=== PATIENT | female | born 1950 | race Caucasian/White ===

== ENCOUNTER → 2020-03-17 17:28 | Outpatient (CLI) | payer MEDICARE, MEDICAID, SELFPAY ==
[2020-03-17 18:30] LABS: Basophils % 0.4 % (0.1-2.0); Eosinophils # 0.3 K/mm3 (0.0-0.4); Eosinophils % 3.2 % (0.1-12.0); Hematocrit 42.9 % (37.0-47.0); Lymphocytes # 3.3 K/mm3 (0.7-4.5); Lymphocytes % 35.4 % (10-50); Mean Corpuscular HGB Conc 32.7 g/dL (31.8-35.4); Mean Corpuscular Hemoglobin 30.6 pg (27.0-31.2); Mean Corpuscular Volume 93.7 fl (81-99); Mean Platelet Volume 8.2 fl (7.4-10.4); Monocytes # 0.5 K/mm3 (0.1-1.0); Monocytes % 4.9 % (1.7-9.3); Neutrophils # 5.2 K/mm3 (1.8-7.8); Platelet Count 348 K/mm3 (142-424); Red Blood Count 4.58 M/mm3 (4.20-5.40); Red Cell Distribution Width 14.5 % (11.5-17.5); White Blood Count 9.2 K/mm3 (4.8-10.8)
[2020-03-17 19:05] LABS: Chloride 105 mmol/L (98-107); Potassium 4.3 mmoL/L (3.5-5.1); Sodium 137 mmol/L (136-145)
[2020-03-17 19:08] LABS: Alanine Aminotransferase 7 U/L (12-78); Albumin Level 4.2 g/dl (3.5-5.0); Albumin/Globulin Ratio 1.4 (1.1-1.8); Alkaline Phosphatase 115 U/L (38-126); Anion Gap 8.3 mEq/L (5-15); Aspartate Amino Transferase 20 U/L (14-36); Bilirubin,Total 0.5 mg/dl (0.2-1.3); Blood Urea Nitrogen 8 mg/dl (7-17); Calcium 8.9 mg/dl (8.4-10.2); Carbon Dioxide 28 mmol/L (22.0-30.0); Estimated Glomerular Filt Rate 82 ml/min (>60); GFR (African American) 100 ML/MIN (>60); Globulin 2.9 g/dL (1.3-3.2); Glucose 100 mg/dl (74-100); Total Protein,Serum 7.1 g/dl (6.3-8.2)
[2020-03-17 19:26] LABS: Free Thyroxine Index 2.4 ug/dL (5.93-13.13); T4 (Thyroxine) 8.8 ug/dl (5.53-11.0); Triiodothryronine (T3) Uptake 27 % (23.5-40.5)
[2020-03-17 19:40] LABS: Thyroid Stimulating Hormone 3.36 uIU/mL (0.465-4.68)
[2020-03-19 09:41] LABS: Vitamin B12 254 pg/mL (232-1245); Vitamin D 25 Hydroxy 13.1 ng/mL (30.0-100.0)
[2020-03-24 10:09] LABS: Methylmalonic Acid 211 nmol/L (0-378)
== END ==
PROVIDERS: Visit Provider Internal Medicine Adolescent Medicine
DX: R41.3 Other amnesia (principal); R53.83 Other fatigue; R53.81 Other malaise; E55.9 Vitamin D deficiency, unspecified; Z79.899 Other long term (current) drug therapy
CPT/HCPCS: 36415; 80053; 82131; 82607; 82652; 84436; 84443; 84479; 85025

== ENCOUNTER 2020-03-26 12:35 | Emergency (ER) | payer MEDICARE, MEDICAID, SELFPAY ==
[2020-03-26 12:57] VITALS: BP 137/68; PULSE 87; RESP 18; TEMP 37.1; O2SAT 97; BMI 21.2
--- NOTE | 2020-03-26 13:06 | CT_ITS ---
PROCEDURE: CT LUMBAR SPINE WO CON CLINICAL HISTORY: back pain Low low back pain, left-sided low back pain COMPARISON: No exams were available for comparison TECHNIQUE: Axial images obtained with sagittal and coronal reformats. All CT scans at the facility use one or more dose reduction, viz: automated exposure control, ma/kV adjustment per patient size (including targeted exams where dose is matched to indication, i.e. head), or iterative reconstruction technique. FINDINGS: There is generalized osteopenia. There are no previous exams available for comparison. There is normal alignment. There is slight compressive change involving the superior endplate of L4. No retropulsion. This is age indeterminate. A small sub chondral cyst is present involving the superior endplate. Minimal bulging disc at L4-5. Mild bulging disc at L5-S1 with facet hypertrophic change. There is some minimal concave deformity involving the inferior endplate of L5. This is well-circumscribed consistent with a chronic finding. Incidental note is made of cholelithiasis. IMPRESSION: Diffuse osteopenia with degenerative changes as described above with bulging discs at L4-5 and L5-S1. Mild superior endplate compressive change of L4 which is age indeterminate and may be better evaluated with MRI Minimal concavity inferior endplate of L5 which appears old. Cholelithiasis Dictated by: Yonny Rodriguez MD 03/26/2020 13:53 Electronically signed by Yonny Rodriguez MD in [place] 03/26/2020 13:53
--- NOTE | 2020-03-26 13:06 | CT_ITS ---
PROCEDURE: CT THORACIC SPINE WO CON CLINICAL HISTORY: back pain Left-sided back pain COMPARISON: CT LUMBAR SPINE WO CON from 03/26/2020 TECHNIQUE: Axial images obtained with sagittal and coronal reformats. All CT scans at the facility use one or more dose reduction, viz: automated exposure control, ma/kV adjustment per patient size (including targeted exams where dose is matched to indication, i.e. head), or iterative reconstruction technique. FINDINGS: There is normal alignment. There is mild exaggeration of the thoracic kyphosis. There is diffuse osteopenia with mild multilevel thoracic spondylosis with degenerative disc disease and small ventral osteophytes. This is present from T3 to the T12. There is mild wedging involving the anterior aspect of T11 vertebral body with loss of height anteriorly of approximately 40 percent without retropulsion. This may be acute as there does appear to be some slight increased soft tissue density in the prevertebral region at this area which could be due to some mild hemorrhage. MRI may confirm this finding. No lytic or blastic change is evident. IMPRESSION: Multilevel thoracic spondylosis. Mild wedging of T11 which may be acute without retropulsion. MRI may confirm the age if clinically desired. Mild thoracic kyphosis. Dictated by: Yonny Rodriguez MD 03/26/2020 13:49 Electronically signed by Yonny Rodriguez MD in [place] 03/26/2020 13:49
--- NOTE | 2020-03-26 13:12 | PC.NURSE ---
notified rad of Ct orders, spoke with Elkin
--- NOTE | 2020-03-26 14:11 | HMH.EDGENADL ---
ED Disposition Clinical Impression: Confusion Thoracic compression fracture Qualifiers: Encounter type: initial encounter Thoracic vertebra fracture level: T11 Qualified Code(s): S22.080A - Wedge compression fracture of T11-T12 vertebra, initial encounter for closed fracture Lumbar compression fracture Qualifiers: Encounter type: initial encounter Lumbar vertebra fracture level: L4 Qualified Code(s): S32.040A - Wedge compression fracture of fourth lumbar vertebra, initial encounter for closed fracture Disposition: Home, Self-Care Condition on Discharge: Good Instructions: DI for Vertebral Fracture, DI for Low Back Pain Additional Instructions: Dr. Marie's office will arrange home health for physical therapy evaluation. Tramadol as needed for pain. See Dr. Marie in the office in [place] on Tuesday. Additional instructions for BACK PAIN: Return immediately if back pain becomes intolerable, or if fever, numbness or weakness of your legs, loss of control of your bowels or bladder. Additional instructions for CONTROLLED SUBSTANCES: You have been prescribed a medication that is a controlled substance. Controlled substances include pain medications known as opiates and sedative nerve medications known as benzodiazepines. Tramadol, fioricet, and gabapentin are also controlled substances. Some common opiates include: Codeine (such as Tylenol #3) Hydrocodone (Vicodin, Lortab, Lorcet, [place]) Oxycodone (Percocet, Percodan, Oxycodone, Oxy IR) Some common benzodiazepines include: Diazepam (Valium) Lorazepam (Ativan) Alprazolam (Xanax) Clonazepam (Klonopin) Oxazepam (Serax) All of these controlled substances are highly addictive and frequently abused. Misuse can and frequently does lead to addiction as well as overdose and . Medication should be stored in a locked cabinet or other secure storage unit. Do not store the medication in a motor vehicle. Short term supplies, 3 days or less, are prescribed because of the highly addictive nature of the medication. Any of the controlled substance medication NOT taken should be disposed of properly and NOT SAVED. The recommended method of disposing of unused medications is: Place the medicines in a sealable plastic bag. If the medicine is a solid, crush it or add water to dissolve it. Add something undesirable (cat litter, coffee grounds, etc.) Dispose of sealed bag in household trash Do not flush or pour unused medicines down a sink or drain. Controlled substances should not be shared, given away or sold. Because of the addictive nature and frequent abuse, these medications are sometimes stolen. These medications should be kept in a safe place where they cannot be stolen. Do not keep them in your car or purse. Lost or stolen prescriptions for controlled substances WILL NOT BE REFILLED in this emergency department, regardless of whether a police report was filed. Prescriptions: Tramadol HCl [Tramadol 50mg Tab] 50 mg PO Q6HP PRN #10 tab PRN Reason: Moderate Pain Prescription Printed Referrals: Lalit Meza MD [Staff Physician] - - Critical Care Critical Care Time: No Attestation: On 03/26/20, the high probability of a clinically significant, sudden or life threatening deterioration of the following system(s) required my full and direct attention, intervention and personal management. The time I documented below is in addition to time spent performing reported procedures but includes the following listed in this critical care notation. Medical Decision Making - Medical Records Medical records reviewed: Yes: I reviewed the patient's medical records. - Damon Inquiry Pt receiving controlled substance: Yes Damon was queried for this patient: Yes Reference #:: [id number] Risks and benefits of using a controlled substance: were discussed with pt by me Comment: 0 rxs. Vital Signs: 03/26/20 12:57 03/26/20 16:11 Temperature 98.7 F 98.1 F
--- NOTE | 2020-03-26 14:41 | CT_ITS ---
PROCEDURE: CT HEAD/BRAIN WO CON CLINICAL INDICATION: possible fall. memory problems. Altered mental status, altered level of consciousness, confusion, disorientation COMPARISON: No exams were available for comparison TECHNIQUE: Axial images obtained. All CT scans at the facility use one or more dose reduction, viz: automated exposure control, ma/kV adjustment per patient size (including targeted exams where dose is matched to indication, i.e. head), or iterative reconstruction technique. FINDINGS: No midline shift, mass effect, intracranial hemorrhage, hydrocephalus, or extra-axial fluid collection is evident. There is generalized atrophy with hypoattenuation of the periventricular white matter consistent with microangiopathic changes. The calvarium has an unremarkable appearance. No mastoid effusion. No sinus air-fluid level. IMPRESSION: No acute intracranial finding Dictated by: Yonny Rodriguez MD 03/26/2020 15:43 Electronically signed by Yonny Rodriguez MD in [place] 03/26/2020 15:43
--- NOTE | 2020-03-26 14:58 | PC.NURSE ---
SPOKE WITH DR AZUL AND DR AZUL HAS REQUESTED THAT A PT RECEIVE A HEAD CT WELL. PT RETURNING FROM CT AT THIS TIME.
--- NOTE | 2020-03-26 15:39 | PC.NURSE ---
contacted radiology to check on the status of head ct result
[2020-03-26 16:11] VITALS: BP 151/73; PULSE 78; RESP 18; TEMP 36.7; O2SAT 97
== END 2020-03-26 16:12 | disposition home or self-care (01) ==
PROVIDERS: Emergency Provider Emergency Medicine; PCP Internal Medicine Adolescent Medicine
DX: R41.0 Disorientation, unspecified (principal); S22.080A Wedge compression fracture of T11-T12 vertebra, initial encounter for closed fracture; S32.040A Wedge compression fracture of fourth lumbar vertebra, initial encounter for closed fracture; Z88.0 Allergy status to penicillin; Z88.5 Allergy status to narcotic agent
CPT/HCPCS: 70450; 72128; 72131; 99282

== ENCOUNTER → 2020-04-01 12:57 | Outpatient (CLI) | payer MEDICARE, MEDICAID, SELFPAY ==
--- NOTE | 2020-04-01 13:01 | MR_ITS ---
PROCEDURE: MR HEAD/BRAIN WO CON CLINICAL INDICATION: MEMORY LOSS, NONINTRACTABLE EPISODIC HEADACHE COMPARISON: CT HEAD/BRAIN WO CON from 03/26/2020 TECHNIQUE: Unenhanced MRI brain protocol FINDINGS: There are no restricted diffusion abnormalities. The vertebral basilar vascular flow voids, pituitary, orbits, and 7th and 8th nerves are unremarkable. There is fluid within the bilateral mastoid air cells and there is mild mucosal thickening of the ethmoidal and frontal sinuses. There is scattered foci of T2 prolongation within the pontine white matter. There is a probable left cerebellar venous varix. Mild bifrontal cortical atrophy is present. 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
== END ==
PROVIDERS: PCP Internal Medicine Adolescent Medicine; Visit Provider Internal Medicine Adolescent Medicine
DX: R41.3 Other amnesia (principal); R51 Headache
CPT/HCPCS: 70551

== ENCOUNTER → 2021-05-01 11:08 | Outpatient (CLI) | payer MEDICARE, MEDICAID, SELFPAY ==
[2021-05-01 13:47] LABS: Basophils # 0.1 K/mm3 (0-0.2); Basophils % 1.1 % (0.1-2.0); Eosinophils # 0.2 K/mm3 (0.0-0.4); Eosinophils % 3.1 % (0.1-12.0); Hematocrit 42.2 % (37.0-47.0); Hemoglobin 13.7 g/dL (12.2-16.2); Lymphocytes # 2.4 K/mm3 (0.7-4.5); Lymphocytes % 34.9 % (10-50); Mean Corpuscular HGB Conc 32.5 g/dL (31.8-35.4); Mean Corpuscular Hemoglobin 29.5 pg (27.0-31.2); Mean Corpuscular Volume 90.9 fl (81-99); Mean Platelet Volume 8.4 fl (7.4-10.4); Monocytes # 0.4 K/mm3 (0.1-1.0); Monocytes % 6.2 % (1.7-9.3); Neutrophils # 3.7 K/mm3 (1.8-7.8); Neutrophils % 54.7 % (37.0-80.0); Platelet Count 382 K/mm3 (142-424); Red Blood Count 4.65 M/mm3 (4.20-5.40); Red Cell Distribution Width 14.9 % (11.5-17.5); White Blood Count 6.8 K/mm3 (4.8-10.8)
[2021-05-01 13:49] LABS: Chloride 106 mmol/L (98-107)
[2021-05-01 13:50] LABS: Potassium 3.8 mmoL/L (3.5-5.1); Sodium 141 mmol/L (136-145)
[2021-05-01 13:52] LABS: Alanine Aminotransferase 6 U/L (12-78); Aspartate Amino Transferase 18 U/L (14-36); Blood Urea Nitrogen 13 mg/dl (7-17); Estimated Glomerular Filt Rate 82 ml/min (>60); GFR (African American) 99 ML/MIN (>60)
[2021-05-01 13:53] LABS: Albumin Level 4.1 g/dl (3.5-5.0); Albumin/Globulin Ratio 1.6 (1.1-1.8); Alkaline Phosphatase 96 U/L (38-126); Anion Gap 12.8 mEq/L (5-15); Bilirubin,Total 0.5 mg/dl (0.2-1.3); Calcium 8.9 mg/dl (8.4-10.2); Carbon Dioxide 26 mmol/L (22.0-30.0); Globulin 2.5 g/dL (1.3-3.2); Glucose 94 mg/dl (74-100); HDL Cholesterol 74 mg/dl (40-60); Total Protein,Serum 6.6 g/dl (6.3-8.2)
[2021-05-01 14:04] LABS: Direct LDL Cholesterol 109.54 mg/dL (100-129)
[2021-05-01 14:09] LABS: Chol/HDL Ratio 2.8 (1-3.5); Cholesterol 208 mg/dl (140-200); Triglycerides 85 mg/dl (30-150); VLDL Cholesterol 17 mg/dL (0-40)
[2021-05-01 14:24] LABS: Thyroid Stimulating Hormone 2.91 uIU/mL (0.465-4.68)
[2021-05-01 15:06] LABS: 25-OH Vitamin D, Total 22.7 ng/mL (30-100)
== END ==
PROVIDERS: Visit Provider Nurse Practitioner Family
DX: I10 Essential (primary) hypertension (principal); R60.9 Edema, unspecified; E55.9 Vitamin D deficiency, unspecified
CPT/HCPCS: 36415; 80053; 80061; 82306; 84443; 85025

== ENCOUNTER 2022-03-28 14:37 | Emergency (ER) | payer MEDICARE, MEDICAID, SELFPAY ==
[2022-03-28 14:45] VITALS: BP 145/77; PULSE 73; RESP 18; TEMP 36.6; O2SAT 98; BMI 20.5
[2022-03-28 15:30] VITALS: BP 145/77; PULSE 73; RESP 18; TEMP 36.6; O2SAT 98; BMI 20.2
--- NOTE | 2022-03-28 15:31 | HMH.EDUTC ---
[facility] Disposition Clinical Impression: Left arm cellulitis Bee sting Qualifiers: Encounter type: initial encounter Injury intent: accidental or unintentional Qualified Code(s): T63.441A - Toxic effect of venom of bees, accidental (unintentional), initial encounter Disposition: Home, Self-Care Condition on Discharge: Good Instructions: How to Care for an Insect Bite or Sting, Cellulitis, Insect Bites and Stings Additional Instructions: Keep the affected area clean and dry. Follow up with your regular doctor. Take the antibiotics as directed and apply the topical antibiotics as directed. Take the steroids as directed. Apply warm wet compresses to the affected area three or four times per day. GO TO THE ER FOR ANY WORSENING SYMPTOMS Prescriptions: Sulfamethoxazole/Trimethoprim [Bactrim DS tablet] 1 each PO BID 10 Days #20 tab Transmission Status: Received by [facility] Mupirocin [Bactroban 2% Ointment 22gm tube] 1 applicatio TP TID 7 Days #1 gm Transmission Status: Received by [facility] cephALEXin [cephALEXin 500mg capsule] 500 mg PO Q6H 10 Days #40 cap Transmission Status: Received by [facility] methylPREDNISolone [Medrol] 4 mg PO DIRECTED 6 Days #21 packet Transmission Status: Received by [facility] Referrals: Kyler Marie MD [Primary Care Provider] - Time of Disposition: 16:00 Medical Decision Making - Medical Records Medical records reviewed: No: I reviewed the patient's medical records. - Damon Inquiry Pt receiving controlled substance: No Vital Signs: 03/28/22 14:45 03/28/22 15:30 03/28/22 16:01 Temperature 97.9 F 97.9 F 97.9 F Temperature Source Oral Oral Pulse Rate 73 Pulse Rate [Brachial] 73 73 Respiratory Rate 18 18 18 Blood Pressure 145/77 H Blood Pressure [Right Arm] 145/77 H 145/77 H Blood Pressure Mean [Right Arm] 99 99 Blood Pressure Source [Right Arm] Manual Cuff/ Doppler Blood Pressure Position [Right Arm] Sitting 02 Sat by Pulse Oximetry 98 98 Oxygen Delivery Method Room Air Orders (Tests/Meds): ED MEDICATIONS Discontinued Medications Generic Name Dose Route Start Last Admin Trade Name Freq PRN Reason Stop Dose Admin Cephalexin HCl 500 mg 03/28/22 15:42 03/28/22 15:53 Cephalexin 250mg/5ml 100ml Susp PO 03/28/22 15:43 Not Given ONCE ONE Cephalexin HCl 500 mg 03/28/22 15:52 03/28/22 15:53 Cephalexin 500mg Capsule PO 03/28/22 15:53 500 mg ONCE ONE Administration Methylprednisolone Sodium Succinate 125 mg 03/28/22 15:41 03/28/22 15:51 Methylprednisolone Sod Succ 125mg Vial IM 03/28/22 15:42 125 mg ONCE ONE Administration Trimethoprim/Sulfamethoxazole 1 each 03/28/22 15:42 03/28/22 15:45 Sulfa/Trimethoprim 1 Tablet PO 03/28/22 15:43 1 each ONCE ONE Administration [facility] HPI - General Stated complaint: wasp sting/arm redness Time Seen by Provider: 03/28/22 15:31 Mode of Arrival: Ambulatory Source of Information: Patient Limitations: No Limitations Description of Symptoms (Recalled from Triage Doc. by RN): STUNG BY WASP ON TUESDAY, C/O INCREASED REDNESS AND SWELLING. - History of Present Illness Provider Complaint: She states that 3 days ago she was stung on her left thumb and hand by a hornet. It has been slightly red and swollen, but since she woke up this morning she has had redness that extends up her arm and worse swelling of the back of her right hand. She denies any fever or chills. - Related Data Home Medications Medication Instructions Recorded Confirmed Amlodipine Besylate [Amlodipine 5 mg PO DAILY 03/26/20 03/26/20 5mg tab] Ergocalciferol (Vitamin D2) 50,000 unit PO DIRECTED 03/26/20 03/26/20 [Vitamin D2] Escitalopram Oxalate 5 mg PO DAILY 03/26/20 03/26/20 Fluticasone Propionate [Flonase 1 spr NS DAILY 03/26/20 03/26/20 50mcg nasal spray 16gm] Levocetirizine Dihydrochloride 5 mg PO DAILY 03/26/20
[2022-03-28 16:01] VITALS: BP 145/77; PULSE 73; RESP 18; TEMP 36.6
== END 2022-03-28 16:06 | disposition home or self-care (01) ==
PROVIDERS: Emergency Provider Nurse Practitioner Family; PCP Internal Medicine Adolescent Medicine
DX: T63.441A Toxic effect of venom of bees, accidental (unintentional), initial encounter (principal); L03.114 Cellulitis of left upper limb
CPT/HCPCS: 96372; 99212; G0463

== ENCOUNTER → 2023-03-16 14:30 | Outpatient (POV) | payer MEDICARE, MEDICAID, SELFPAY ==
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
[2023-03-16 15:29] VITALS: BP 112/89; PULSE 74; RESP 18; O2SAT 96; BMI 22.1
== END ==
PROVIDERS: PCP Internal Medicine Adolescent Medicine; Visit Provider Nurse Practitioner Family
DX: S32.040A Wedge compression fracture of fourth lumbar vertebra, initial encounter for closed fracture (principal); S22.080A Wedge compression fracture of T11-T12 vertebra, initial encounter for closed fracture; M54.50 Low back pain, unspecified; G89.4 Chronic pain syndrome
CPT/HCPCS: 99202; G0463

== ENCOUNTER 2024-12-04 09:02 | Outpatient (CLI) | payer MEDICARE, SELFPAY ==
--- NOTE | 2024-12-04 09:05 | CT_ITS ---
FINAL REPORT CLINICAL HISTORY: SCREENING smoker 60 years 1 ppd COMPARISON: None FINDINGS: CT CHEST LOW DOSE SCREENING HISTORY: Screening exam for lung cancer. 74-year-old female, Current smoker, 60 pack year smoking history DOSE: CTDIvol: 2.7 mGy, DLP: 86.2 mGy*cm COMPARISON: None . TECHNIQUE: Axial CT without IV contrast administration using low dose protocol. This study was performed with techniques to keep radiation doses as low as reasonably achievable, (ALARA). Individualized dose reduction techniques using automated exposure control or adjustment of mA and/or kV according to the patient's size were employed. FINDINGS: No acute lung disease is present . No pulmonary lesions are seen suspicious for neoplasm. Mild scarring is present in the right lung base. Changes of emphysema are present. No pleural or pericardial effusion is seen . No adenopathy or mass lesion is present . IMPRESSION: 1. No evidence of lung cancer LUNG RADS CATEGORY 1 RECOMMENDATION: 12 month LDCT follow up Reviewed, Interpreted and Dictated by Jeyson Moser MD Transcribed by Meg St Authenticated and [facility]
--- NOTE | 2024-12-04 09:05 | XR_ITS ---
FINAL REPORT TECHNIQUE: Bone mineral density was calculated of the lumbar spine and hip. CLINICAL HISTORY: SCREENING COMPARISON: None FINDINGS: Using L1-4, the bone mineral density of the spine is 0.858 g/cm2, corresponding to T-score of -1.7. Using the left hip, the bone mineral density of the femoral neck is 0.505 g/cm2, corresponding to a T-score of -3.1. Using the right hip, the bone mineral density of the femoral neck is 0.560 g/cm?, corresponding to a T-score of -2.6. NOTE: T-score: Standard deviation compared with peak bone mass of young adult mean. *Following the recommendations of the International Society of Bone densitometry, classification of hip BMD is based on the lower of two T-scores; total hip or femoral neck. IMPRESSION: Diminished bone mineral density of the lumbar spine consistent with osteopenia. Diminished bone mineral density of the bilateral hips consistent with osteoporosis. Reviewed, Interpreted and Dictated by Ashish Singer III, MD Transcribed by Meg St Authenticated and . [facility]
== END 2024-12-04 23:59 | disposition home or self-care (01) ==
LOC: RAD 09:02
PROVIDERS: PCP Nurse Practitioner Family; Visit Provider Internal Medicine Adolescent Medicine
DX: Z78.0 Asymptomatic menopausal state (principal); Z87.891 Personal history of nicotine dependence
CPT/HCPCS: 71271; 77080

== ENCOUNTER 2025-09-07 11:42 | Outpatient (CLI) | payer MEDICARE, SELFPAY ==
--- OUTSIDE RECORDS SUMMARY | 2024-05-01 09:00 | XMS_ITS ---
Author Organization [facility] Address [address] [place] [address] Care Team Providers Care Garde Manger Name Role Phone Kyler Marie Primary Care Provider REASON FOR VISIT MED CK Encounters Encounter Location Date Provider Diagnosis [place] [address] [address] 05/01/2024 Kyler Marie Plan Of Treatment Next Appt Details Provider Name:Kyler Marie, 09/17/2025 02:00:00 PM, [address] [place] [address], [id number], Progress Notes * Tc BULLOB: [birth year] (75 yo F)Acc No.[id number]:05/01/2024 Progress Notes Patient: Ana ROJO Provider: Nicky Marie MD :1950 A ge:74 Y S ex:Female Date:05/01/2024 Address:[address], [place] Subjective: * Chief Complaints: * 1 . MED CK. * Medical History: Objective: * Vitals: Assessment: Plan: * Treatment: * * Electronic signature of Spike Marie MD FAAP on 09/07/2025 at 11:46 AM EST Sign off status: Pending * Provider: Nicky Marie MD Date: 05/01/2024 Generated for Printi ng/Marlyn/Luzitting on: 1 11/07/2024 11:46 AM EST
--- OUTSIDE RECORDS SUMMARY | 2025-01-12 16:30 | XMS_ITS ---
Author Organization [facility] Address [address] [place] [address] Care Team Providers Care Computer Networking Instructor Adjunct Name Role Phone Kyler Marie Primary Care Provider Migration, Provider Unavailable Unavailable Allergies Allergen (clinical drug ingredient) Drug/Non Drug Allergy documented on EMR Reaction Allergy Type Onset Date Status Information temporarily unavailable Singulair Unknown Drug Allergy Active Information temporarily unavailable Percocet Unknown Drug Allergy Active Information temporarily unavailable Penicillin Unknown Drug Allergy Active [facility]AS[facility] FOR VISIT [facility] Encounter Medications Medication SIG (Take, Route, Frequency, Duration) Notes Start Date End Date Status amLODIPine Besylate 5 MG 1 tab(s) orally once a day; Duration: 90 days Active Levocetirizine Dihydrochloride 5 MG 1 tab(s) orally once a day (in the evening); Duration: 90 days 01/02/2024 Active Vitamin D3 50 MCG 1 CAP(S) ORALLY ONCE A DAY *Please review and pick correct strength-formulati on from Inkvitean options. If intended option is not shown, discontinue and re-order from Quick Search* Active Aspirin 81 MG 1 tab(s) orally once a day Active Donepezil HCl 10 MG 1 tab(s) orally once a day (at bedtime); Duration: 90 days 11/14/2024 Active Lexapro 5 MG 1 tab(s) orally once a day; Duration: 90 days Active Memantine HCl 21 MG 1 CAP(S) ORALLY ONCE A DAY; Duration: 90 DAYS *Please review and pick correct strength-formulati on from Inkvitespan options. If intended option is not shown, discontinue and re-order from Quick Search* 11/14/2024 Active Encounters Encounter Location Date Provider Diagnosis [facility] [address] [place] [address] 01/12/2025 Provider Migration Essential hypertension I10 ; Seasonal allergies J30.2 ; Vitamin D deficiency E55.9 ; 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 F03.90 and Anxiety F41.9 Assessments Encounter Date Diagnosis (ICD Code) Assessment Notes Treatment Notes Treatment Clinical Notes Section Notes 01/12/2025 Essential hypertension (ICD-10 - I10) 01/12/2025 Seasonal allergies (ICD-10 - J30.2) 01/12/2025 Vitamin D deficiency (ICD-10 - E55.9) 01/12/2025 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 (ICD-10 - F03.90) 01/12/2025 Anxiety (ICD-10 - F41.9) Plan Of Treatment Medication Medication Name Sig Start Date Stop Date Notes amLODIPine Besylate 5 MG 1 tab(s) orally once a day; Duration: 90 days Levocetirizine Dihydrochloride 5 MG 1 tab(s) orally once a day (in the evening); Duration: 90 days 01/02/2024 Vitamin D3 50 MCG 1 CAP(S) ORALLY ONCE A DAY *Please review and pick correct strength-formulation from Medispan options. If intended option is not shown, discontinue and re-order from Quick Search* Aspirin 81 MG 1 tab(s) orally once a day Donepezil HCl 10 MG 1 tab(s) orally once a day (at bedtime); Duration: 90 days 11/14/2024 Lexapro 5 MG 1 tab(s) orally once a day; Duration: 90 days Memantine HCl 21 MG 1 CAP(S) ORALLY ONCE A DAY; Duration: 90 DAYS 11/14/2024 *Please review and pick correct strength-formulation from Medispan options. If intended option is not shown, discontinue and re-order from Quick Search* Next Appt Details Provider Name:Kyler Sims Cynthia, 09/17/2025 02:00:00 PM, [address] [address], [place], [address], Progress Notes * Tc SIMMONSOB: [birth year] (75 yo F)Acc No.[id number]:01/12/2025 Patient: Ana ROJO Provider: Robert asa Migration :1950 A ge:74 Y S ex:Female Date:01/12/2025 Address:[address] [place] [address], [id number] Pcp:Kyler Marie Subjective: * Chief Complaints: * 1 . Multum To [facility] Conversion Encounter. * Medical History: * Allergies: P enicillin, Singulair, Percocet. Objective: * Vitals: Assessment: * Assessment: 1. E ssential hypertension - I10 (Primary) 2 . S easonal allergies - J30.2? 3. V itamin D deficiency - E55.9 4 . S enile dementia without behavioral disturbance - F03.90 5 . A nxiety - F41.9 Plan: * Treatment: 2. S easonal allergies Refill Levocetirizine Dihydrochloride Tablet, 5 MG, 1 tab(s), orally, once a day (in the evening), 90 days, 90, Refills 2. 3. V itamin D deficiency Continue Vitamin D3 CAPSULE, 50 MCG, 1 CAP(S), ORALLY, ONCE A DAY, Notes to Pharmacist: *Please review and pick correct strength-formulation from Medispan options. If intended option is not shown, discontinue and re-order from Quick Search*. 4. S enile dementia without behavioral disturbance Start Donepezil HCl Tablet, 10 MG, 1 tab(s), orally, once a day (at bedtime), 90 days, 90, Refills 2; S tart Memantine HCl CAPSULE, EXTENDED RELEASE, 21 MG, 1 CAP(S), ORALLY, ONCE A DAY, 90 DAYS, 90 CAPSULE, Refills 2, Notes to Pharmacist: *Please review and pick correct strength-formulation from Medispan options. If intended option is not shown, discontinue and re-order from Quick Search*.? 5. A nxiety Refill Lexapro Tablet, 5 MG, 1 tab(s), orally, once a day, 90 days, 90, Refills 2. * * Electronic signature of Prov ider Migration on 09/07/2025 at 11:45 AM EST Sign off status: Pending * Provider: Robert bray Migration Date: 0 01/12/2025 Generated for Rose ochoa/Marlyn/Maday on: 1 11/07/2024 11:45 AM EST
--- NOTE | 2025-09-07 | XR_ITS ---
PROCEDURE INFORMATION: Exam: XR Left Hip Exam date and time: 09/07/2025 11:46 AM Age: 75 years old Clinical indication: Pelvic pain TECHNIQUE: Imaging protocol: Radiologic exam of the left hip. Views: 2 or 3 views hip with pelvis when performed. COMPARISON: 1. No relevant prior studies available. 2. CR XR HIP LT 2-3V W/PELVIS 09/07/2025 11:46 AM FINDINGS: Bones/joints: Mild degenerative changes of the hips, sacroiliac joints and pubic symphysis. Degenerative change of the visualized lumbar spine. Osteopenia. Soft tissues: Unremarkable. IMPRESSION: 1. Mild degenerative changes of the hips, sacroiliac joints and pubic symphysis. 2. Degenerative change of the visualized lumbar spine. 3. Osteopenia.
--- NOTE | 2025-09-07 | XR_ITS ---
PROCEDURE INFORMATION: Exam: XR Lumbosacral Spine Exam date and time: 09/07/2025 11:48 AM Age: 75 years old Clinical indication: Low back pain TECHNIQUE: Imaging protocol: Radiologic exam of the lumbosacral spine. Views: 2 or 3 views. COMPARISON: CT LUMBAR SPINE WO CON 03/26/2020 1:23 PM FINDINGS: Bones/joints: Five lumbar-type vertebral bodies. No acute fracture or subluxation. Chronic compressions of the L4 superior endplate and L5 inferior endplate. Multilevel disc space narrowing with vertebral osteophyte formation and facet arthropathy. Osteopenia. Soft tissues: Unremarkable. Organs: Stones in the gallbladder. Vasculature: Atherosclerosis. IMPRESSION: 1. No acute fracture or subluxation. 2. Chronic compressions of the L4 superior endplate and L5 inferior endplate. 3. Multilevel degenerative changes of the spine. 4. Osteopenia. 5. Atherosclerosis. 6. Stones in the gallbladder.
--- OUTSIDE RECORDS SUMMARY | 2025-09-07 06:00 | XMS_ITS ---
Author Organization [facility] Address [address] [place] [address] Care Team Providers Care Crossbow Maker Name Role Phone Kyler Marie Primary Care Provider Allergies Allergen (clinical drug ingredient) Drug/Non Drug Allergy documented on EMR Reaction Allergy Type Onset Date Status Information temporarily unavailable Singulair Unknown Drug Allergy Active Information temporarily unavailable Percocet Unknown Drug Allergy Active Information temporarily unavailable Penicillin Unknown Drug Allergy Active REASON FOR VISIT back pain lt side , trouble walking Medications Medication SIG (Take, Route, Frequency, Duration) Notes Start Date End Date Status Lidocaine 5 % 1 patch remove after 12 hours Externally Once a day; Duration: 10 days 09/07/2025 Active Escitalopram Oxalate 5 MG Take 1 tablet by mouth once daily; Duration: 90 Active amLODIPine Besylate 5 MG Take 1 tablet b y mouth once daily; Duration: 90 Active Donepezil HCl 10 MG TAKE 1 TABLET BY KIM TH ONCE DAILY AT BEDTIME; Duration: 90 Active Levocetirizine Dihydrochloride 5 MG TAKE 1 TABLET BY MOUTH ONCE DAILY IN THE EVENING; Duration: 90 Active Vitamin D3 50 MCG 1 CAP(S) ORALLY ONCE A DAY Active Aspirin 81 MG 1 tab(s) orally once a day Active Mupirocin 2 % 1 application Cardiology Rn ally Twice a day; Duration: 7 days 06/07/2025 Active Memantine HCl 21 MG 1 CAP(S) ORALLY ONCE A DAY; Duration: 90 DAYS 11/14/2024 Active Vital Signs Temperature 97.9 degrees Fahrenheit 09/07/20 25 Blood pressure systolic 126 mm Hg 09/07/20 25 Blood pressure diastolic 78 mm Hg 025 Heart Rate 78 /min 09/07/2025 Height 5 ft in 09/07/2025 Weight 104 lbs 09/07/2025 BMI 20.31 kg/m2 09/07/2025 Encounters Encounter Location Date Provider Diagnosis [facility] [address] [place] [address] 09/07/2025 Kyler Marie Hip pain, left M25.552 and Lumbar pain M54.50 Assessments Encounter Date Diagnosis (ICD Code) Assessment Notes Treatment Notes Treatment Clinical Notes Section Notes 09/07/2025 Hip pain, left (ICD-10 - M25.552) Exam notable for minimal pain with internal rotation but able to walk well, points to her SI joint. Will check x-rays. Lidocaine patch as prescribed. Recommended 2 Tylenol 3 times a day as the Tylenol this morning really helped. 09/07/2025 Lumbar pain (ICD-10 - M54.50) No falls, given risk factors will check lumbar x-rays for compression fractures Plan Of Treatment Medication Medication Name Sig Start Date Stop Date Notes Lidocaine 5 % 1 patch remove after 12 hours Externally Once a day; Duration: 10 days 09/07/2025 Treatment Notes Assessment Notes Hip pain, left Exam notable for minimal pain with internal rotation but able to walk well, points to her SI joint. Will check x-rays. Lidocaine patch as prescribed. Recommended 2 Tylenol 3 times a day as the Tylenol this morning really helped. Lumbar pain No falls, given risk factors will check lumbar x-rays for compression fractures Pending Test Test Name Order Date X ray : Spines, Lumbar 09/07/2025 X ray : Hip, Left 09/07/2025 Next Appt Details Follow Up: prn, Reason: Provider Name:Kyler Leviroberto Marie, 09/17/2025 02:00:00 PM, [address], [address], Progress Notes * Tc SIMMONSOB: [birth year] (75 yo F)Acc No.[id number]:09/07/2025 Progress Notes Patient: Ana ROJO Provider: Nicky Marie MD :1950 A ge:75 Y S ex:Female Date:09/07/2025 Address:[address] [place] [address] [place], [id number] Subjective: * Chief Complaints: * 1 . Back pain lt side , trouble walking. * HPI: g en: Woke up this morning with pain in her left hip, may be radiates into the left leg. Walks well with very minimal assistance. Took a Tylenol and ibuprofen this morning and feels better according to her chief librarian music department. Denies falls. Does think she banged her hip up against a piece of furniture yesterday doing some moving. * Medical History: S hingles, Tobacco use, Dementia, related to prior alcohol abuse, HTN, vitamin D deficiency, Osteoporosis, DDD, Hearing loss. * Medications: T aking Vitamin D3 50 MCG CAPSULE 1 CAP(S) ORALLY ONCE A DAY , Taking Aspirin 81 MG Tablet Delayed Release 1 tab(s) orally once a day , Taking Memantine HCl 21 MG CAPSULE, EXTENDED RELEASE 1 CAP(S) ORALLY ONCE A DAY , Taking Mupirocin 2 % Ointment 1 application Externally Twice a day , Taking Levocetirizine Dihydrochloride 5 MG Tablet TAKE 1 TABLET BY MOUTH ONCE DAILY IN THE EVENING , Taking Donepezil HCl 10 MG Tablet TAKE 1 TABLET BY MOUTH ONCE DAILY AT BEDTIME , Taking amLODIPine Besylate 5 MG Tablet Take 1 tablet by mouth once daily , Taking Escitalopram Oxalate 5 MG Tablet Take 1 tablet by mouth once daily , Medication List reviewed and reconciled with the patient * Allergies: P enicillin, Singulair, Percocet. Objective: * Vitals: N urse: dw, Pain: 9, Temp: 97.9, RR: 20, HR: 78, BP: 126/78, Ht: 5 ft, Wt: 104, BMI:20.31. * Examination: G eneral Examination: Robert [place] is hard of hearing which limits her communication but denies pain with hip rotation on the right, very minimal pain with external rotation of the left. No straight leg raise testing pain. No kyphosis, gibbus formation or deformity on palpation. Is stooped and kyphotic in general. Minimal SI pain on palpation. No CVA pain, abdomen soft and nontender, vital signs look good. Assessment: * Assessment: 1. H ip pain, left - M25.552 (Primary) 2 . L umbar pain - M54.50 Plan: * Treatment: ?Imaging: X ray : Hip, Left* Notes: Exam notable for minimal pain with internal rotation but able to walk well, points to her SIjoint. Will check x-rays. Lidocaine patch as prescribed. Recommended 2 Tylenol 3 times a day as the Tylenol this morning really helped.?? 2.?Lumbar pain? Start Lidocaine Patch, 5 %, 1 patch remove after 12 hours, Externally, Once a day, 10 days, 10, Refills 3.?Imaging: X ray : Spines, Lumbar * ?Imaging: X ray : Hip, Left* Notes: No falls, given risk factors will check lumbar x-rays for compression fractures?? * Procedure Codes: G 2211 Complex e/m visit add on * Follow Up: p rn * * Sign off status: Completed true * Provider: Nicky Marie MD Date: 11/07/2024 Generated for Rose ochoa/Marlyn/eTransmitting on: 11/07/2024 11:45 AM EST History and Physical Notes * HPI (History of Present Illness) Category Sub-Category Detail Notes Category Not es Woke up this morning with pain in her left hip, may be radiates into the left leg. Walks well with very minimal assistance. Took a Tylenol and ibuprofen this morning and feels better according to her chief librarian music department. Denies falls. Does think she banged her hip up against a piece of furniture yesterday doing some moving. Examination Category Sub-Category Detail Notes Category Not es General Examination Patient is hard of hearing which limits her communication but denies pain with hip rotation on the right, very minimal pain with external rotation of the left. No straight leg raise testing pain. No kyphosis, gibbus formation or deformity on palpation. Is stooped and kyphotic in general. Minimal SI pain on palpation. No CVA pain, abdomen soft and nontender, vital signs look good
--- OUTSIDE RECORDS SUMMARY | 2025-09-07 11:46 | XMS_ITS | Clinical Summary ---
Author Organization Healthcare Address [address] [place] [address] Care Team Providers Care Dispatcher Service Or Work Name Role Phone Chevy Grijalva MD Primary Care Provider [phone] Allergies Active Allergy Reactions Criticality Noted Date Comments Acetaminophen Nausea Medium 03/28/2022 Montelukast Other - please docum ent in the comment field Low 12/01/2023 Oxycodone Nausea Medium 03/28/2022 Oxycodone-Acetaminophen Hives Medium 12/01/2023 Penicillin G Hives Medium 12/01/2023 Penicillins Rash Medium 09/27/2017 Medications aspirin 81 MG EC tablet Take 1 tablet (81 mg) by mouth Daily. Active Xyzal Allergy 24HR 5 MG tablet 1 tab(s) orally once a day (in the evening) for 30 days Active amLODIPine (Norvasc) 5 MG tablet Take 1 tablet (5 mg) by mouth Daily. Active Lexapro 5 MG tablet Take 1 tablet (5 mg) by mouth Daily. Active donepezil (Aricept) 5 MG tablet 1 tab(s) orally once a day with food for 90 Active Memantine HCl ER 14 MG capsule sustained-releas e 24 hr 1 (one) time each day at the same time. Active ofloxacin (Floxin) 0.3 % otic solution Apply 4 drops to left ear 3 times a day for 5 days 5 mL 12/01/2023 Active Social History Tobacco Use Types Packs/Day Years Used Date Smoking Tobacco: Every Day Cigarettes 2 62.9 Started: 1964 Passive Smoke Exposure: Current Smokeless Tobacco: Never Tobacco Cessation:Ready to Q uit: Not Asked; Counseling Given: Not Answered Alcohol Use Standard Drinks/Week Comments Not Currently 0 (1 standard drink = 0.6 oz pur e alcohol) Comments Unknown Sex and Gender Information Value Date Recorded Sex Assigned at Not on file Legal Sex Female 8:20 PM EDT Gender Identity Not on file Sexual Orientation Not on file Last Filed Vital Signs Vital Sign Reading Time Taken Comments Blood Pressure 128/76 12/20/2023 10:58 AM EDT Pulse 74 12/20/2023 10:58 AM EDT Temperature - - Respiratory Rate - - Oxygen Saturation - - Inhaled Oxygen Concentration - - Weight 52.2 kg (115 lb) 12/20/2023 10:58 AM EDT Height 149.9 cm (4' 11 ) 12/20/2023 10:58 AM EDT Body Mass Index 23.23 12/20/2023 10:58 AM EDT Plan of Treatment Health Maintenance Due Date Last Done Comments [facility]-Bone Density Scan 1948 [facility]-Depression Screening 1948 [facility]-Hepatitis C Screening 1950 [facility]-Medicare Annual Wellness (AWV) 1948 [facility]-Infant/Child/Adol SDOH Screenings 1948 [facility]- SDOH Screenings 1966 [facility]-Adult SDOH Screenings 1966 [facility]-DTaP,Tdap,and Td Vaccines (1 - Tdap) 1967 [facility]-Zoster Vaccines (2 of 2) 02/27/2024 01/02/2024 [facility]-TYXKO-17 Vaccine (2 - 2024- season) 2025 01/15/2021 [facility]-Influenza Vaccine (#1) 06/10/202507/10, 08/22/2014 [facility]-Pneumococcal Vaccine: 50+ Years Completed 08/12/2020, 07/10/2018 [facility]-RSV Vaccine: 60+ Years or Completed 01/02/2024 HPV Vaccines Aged Out No longer eligi ble based on patient's age to complete this topic [facility]-HIB Vaccines Aged Out No longer e ligible based on patient's age to complete this topic [facility]-Hepatitis A Vaccines Aged Out No longer eligible based on patient's age to complete this topic [facility]-IPV Vaccines Aged Out No longer e ligible based on patient's age to complete this topic [facility]-Rotavirus Vaccines Aged Out No lo nger eligible based on patient's age to complete this topic Insurance MEDICARE Care Teams Dispatcher Service Or Work Relationship Specialty Start Date End Date Chevy Grijalva MD [address] [phone] PCP - General 08/31/23
--- OUTSIDE RECORDS SUMMARY | 2025-09-07 11:46 | XMS_ITS | Data Portability ---
Author Organization [facility]AR[facility] Figueredo [facility] Address [address] [place] [address] Care Team Providers Care Citrus Fruit Packer Name Role Phone [facility] [place] Primary Care Provider Assessment No assessment recorded. Plan of Treatment Reminders Order Date Submit Date Provider Last Modified By Organization Details Last Modified Time Details Appointments DERM WORK-IN PROVIDER APPROVED 2024 12:40P M JADON TRENT MD Not available Not available Not available Lab None recorded. Referral None recorded. Procedures None recorded. Surgeries None recorded. Imaging None recorded. Medication Orders levocetir izine 5 mg tablet 2018 [facility] [address] [place], [address], 08/16/2023 14:28:57 Patient TargetsNo targets recorded. Patient Instructions Encounter Date Encounter Id Patient Instructions Last Modified By Organization Details Last Modified Time 08/25/2018 [id number] perforated eardrum: care instructions [email or web address] Not available 08/25/2018 13:42:51 eustachian tube problems: care instructions [email or web address] Not available 08/25/2018 13:42:51 1. Binocular microscopy performed; Full risks, complications, and benefits of operative versus non-operative intervention have been thoroughly discussed. Understanding was expressed, informed consent given, and we will proceed with the discussed in office treatment plan. There were no questions for me at the end of the office visit. 2. Use 2-3 drops ciprodex once a week in bilateral ears 3. Audiogram obtained; reviewed 4. F/U 4 months asalva Not available 08/25/2018 13:38:11 chronic suppurative OM finally under control; left t tube in place; dry 10% perforation in right TM; will discuss hearing aids with our AuD today; needs to use ciprodex weekly to prevent return of otorrhea; follow up in 4 months to check her progress rvanmetre Not available 08/25/2018 13:42:19 01/02/2019 [id number] perforated eardrum: care instructions rvanmetre Not available 01/02/2019 12:41:44 eustachian tube problems: care instructions rvanmetre Not available 01/02/2019 12:41:44 rhinitis: care instructions rvanmetre Not available 01/02/2019 12:41:44 1. Continue usin g ciprodex drops regularly 2. Rx- Levocetirizine 3. F/U 6 months asalva Not available 01/02/2019 12:12:38 finally have resolved the issues with chronic bilateral otorrhea; right pinpoint TM perforation is dry; left t tube in place and dry; will continue strategy of using ciprodex weekly; also will restart daily xyzal; follow up in six months to check her progress rvanmetre Not available 01/02/2019 12:16:21 08/16/2023 [id number] 1. Audio obtaine d 2. Recommend evaluation for Bone anchored hearing aid vs Cochlear implant for hearing loss- Referral to [facility] dry cans operator made for patient 3. F/u per [facility] Scrubber Operator recommendations, or prn [email or web address] Not available 08/16/2023 15:44:59 long history of ear problems with extremely poor hearing; had hearing aids but lost them; left t tube placed about 5 [address] still in [address]; may be good candidate for BAHA or cochlear implant so will discuss with Scrubber Operator at [facility] rvanmetre Not available 08/16/2023 16:05:56 Reason for Referral None Reported. Results Created Date Observation Date Name Description Value Unit Range Abnormal Flag Note LastModifiedBy Organization Detail LastModifiedTime 08/17/20 23 08/16/2023 audio gram No observ ation record ed. BARCODE Not Available 2022 08:14:20 Result Notes None recorded. Problems Name Problem SNOMED Code Status Onset Date Resolution Date Notes Provider Name and Address Organization Details Recorded Time Acute otitis media 2088025 Active 2016 RICHMOND WEEMS, TRACK MANAGER [address] [place], [address], [facility] 7 14:08:17 Infective otitis externa 64461398 Active 2016 RICHMOND WEEMS, TRACK MANAGER [address] [place], [address], [facility] 7 14:08:19 Retained foreign body of middle ear 43316759 Active 2016 RICHMOND WEEMS APRN [address] [place], [address], [facility] 7 14:08:21 Dysfunction of eustachian tube 64624021 Active 2016 RICHMOND WEEMS APRN [address] [place], [address], [facility] 7 14:08:22 Tobacco user 531913299 Active 2016 RICHMOND WEEMS APRN [address] [place], [address], [facility] 7 14:08:24 Leukoplakia of oral mucosa 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 Procedures Surgical History Date Name Laterality Status Provider Name and Address Organization Details Recorded Time 3 Tympanogram completed LOWELL FARRAR AUD [address] [place], [address], [facility] 08/16/2023 15:25:00 3 Audiogram completed LOWELL FARRAR AUD [address] [place], [address], [facility] 08/16/2023 15:24:58 8 Binocular Microscopy completed [facility] 08/25/2018 13:36:25 8 Binocular Microscopy completed [facility] 08/01/2018 12:29:18 8 Binocular Microscopy completed Jenna Disla [facility] 05/10/2018 13:28:07 8 Tympanogram completed THU MAZARIEGOS, AUD [address] [place], [address], [facility] 03/31/2018 14:42:10 8 Audiogram completed THU MAZARIEGOS, AUD [address] [place], [address], [facility] 03/31/2018 14:42:08 8 [facility] 15:09:51 7 Binocular Microscopy completed RICHMOND WEEMS, TRACK MANAGER [address] [place], [address], [facility] 08/12/2017 14:17:01 7 Ears/Nose/Throa t Surgery completed Latoya Del Rio [facility] 03/25/2017 11:36:29 7 Tympanogram completed ANNA HAMPTON, AUD [address] [place], [address], [facility] 02/18/2017 10:13:08 7 Audiogram completed ANNA HAMPTON, AUD [address] [place], [address], [facility] 02/18/2017 10:13:06 7 Audiogram completed Aissatou Rucker [facility] 02/18/2017 10:25:37 Removal of spleen total completed Calli Gilbert [facility] 02/18/2017 10:01:25 delivery completed Calli Gilbert [facility] 02/18/2017 10:01:29 Imaging Results None recorded. Procedure Notes None recorded. Medical Equipment None Reported. Allergies Allergen ID Allergen Name Allergen Category Reaction Reaction Severity Criticality Documentation Date Start Date Code Code System Note Provider Name and Address Organization Details Recorded Time 941994 Product containin g penicilli n (product) medicatio n Not available Not available Not available 02/18/2017 15619 9926 SNCONNOR Gilbert [facility] 7 09:58:53 Medications Name Sig Start Date Stop Date Status Note LastModified by Organization Details LastModified Time donepezil 5 mg tablet active Not Available Not Available No t Available ofloxacin 0.3 % eye drops 08/16 completed Not Available Not Available Not Available prednisone 20 mg tablet Take 2 tablets every day by oral route for 7 days. 08/25 completed Not Available Not Available Not Available amlodipine 5 mg tablet active Not Available Not Available Not Available prednisolon e acetate 1 % eye drops,suspe nsion INSTILL 5 DROPS IN BILATERAL EARS TWICE DAILY FOR 3 WEEKS 08/16 completed Not Available Not Available Not Available ciprofloxac in 0.3 % eye drops 3 drops to left ear BId for one week. 08/16 completed Not Available Not Available Not Available montelukast 10 mg tablet 08/16 completed Not Available Not Available Not Available metoprolol succinate ER 25 mg tablet,exte nded release 24 hr 08/16 completed Not Available Not Available Not Available cefdinir 300 mg capsule 03/25 completed Not Available Not Available Not Available fluticasone propionate 50 mcg/actuati on nasal spray,suspe nsion 08/16 completed Not Available Not Available Not Available escitalopra m 10 mg tablet 08/16 completed Not Available Not Available Not Available Ciprodex 0.3 %-0.1 % ear drops,suspe nsion INSTILL 4 DROPS INTO AFFECTED EAR(S) BY OTIC ROUTE 2 TIMES PER DAY FOR 7 DAYS 08/16 completed Not Available Not Available Not Available escitalopra m 5 mg tablet 08/16 completed Not Available Not Available Not Available Aspir-81 active Not Available Not Avai lable Not Available Vitamin D3 active Not Available Not Av ailable Not Available Symbicort 80 mcg-4.5 mcg/actuati on HFA aerosol inhaler 08/16 completed Not Available Not Available Not Available levocetiriz ine 5 mg tablet Take 1 tablet every day by oral route for 30 days. 08/16 completed Not Available Not Available Not Available Xyzal active Not Available Not Availa ble Not Available memantine 14 mg capsule sprinkle,ex tended release 24hr active Not Available Not Available Not Available Vitals Date Recorded Body height Body mass index (BMI) Body weight Body temperature Heart rate Systolic And Diastolic Provider Name and Address Organization Details Last Updated DateTime 9 154.94 cm 24.6 kg/m2 92623.0 1 g 97.4 [degF] 65 /min 128/63 mm[Hg] Amy Burns [facility] 9 12:08:04 Date Recorded Body height Body mass index (BMI) Body weight Heart rate Body temperature Systolic And Diastolic Provider Name and Address Organization Details Last Updated DateTime 3 152.4 cm 22.7 kg/m2 82814.7 1 g 75 /min 98.2 [degF] 134/66 mm[Hg] Kayleigh Satish [facility] 3 14:35:57 Date Recorded Body height Body temperature Heart rate Body mass index (BMI) Body weight Systolic And Diastolic Provider Name and Address Organization Details Last Updated DateTime 8 154.94 cm 99.5 [degF] 89 /min 24.8 kg/m2 24765.3 g 132/68 mm[Hg] Amanda Lamore [facility] 8 13:17:12 Social History Question Answer Notes LastModified by Organizat ion Details LastModified Time Tobacco Smoking Status [facility] 10:01:03 What Was The Date Of Your Most Recent Tobacco Screening? 08/25/2018 Information not available 11/27/2019 Has Tobacco Cessation Counseling Been Provided? Yes [email or web address] Information not available 08/05/2017 On What Date Was Tobacco Cessation Counseling Provided? 08/25/2018 [email or web address] Information not available 08/25/2018 Sex: Unknown Functional Status Question Answer Note LastModified by Organization D etails LastModified Time What is your level of alcohol consumption? None [email or web address] Information not available 02/18/2017 Mental Status None recorded. Family History Relationship Description Onset Age of this Age Resolved Age Notes LastModified by Organization Details LastModified Time Mother Heart disease [email or web address] Not available 2016 10:00:46 Mother Hypertensive disorder [email or web address] Not available 2022 14:31:11 Mother Hearing loss [email or web address] Not avai lable 08/16/2023 14:31:20 Sister Hearing loss [email or web address] Not avai lable 08/16/2023 14:31:30 Sister Hypertensive disorder [email or web address] Not available 2022 14:31:39 Medical History Condition Response Anesthesia Complications N Cancer N Diabetes N Bleeding Disorder N Hypertension N Gynecological HistoryNo gynecological history recorded. Obstetrics History GPAL:G 0 P 0 0 0 0 Past Encounters Encounter ID Performer Location Encounter Start Date Encounter Closed Date Diagnosis/Indication Diagnosis SNOMED-CT Code Diagnosis ICD10 Code Diagnosis IMO Codes Diagnosis Note [id number] KSENIA MARQUIS MD [facility] [facility] [address] [facility] [place] [address] 02/18/2017 09:37:14 02/18/2017 13:15:48 Mixed conductive and sensorineural hearing loss of right ear 5714218032 9105 H90.A31 Sensorineu ral hearing loss in left ear 8236116938 9109 H90.A22 Perforatio n of tympanic membrane 42837595 H72.91 healed Dysfunctio n of eustachian tube 33312647 H69.93 Acute non- suppurative serous otitis media 790951107 H65.01 Bilateral chronic serous otitis 443526252 H65.23 hx of [id number] ANNA MADRIDRYJIMBO [facility] [facility] [address] [facility] [place] [address] 02/18/2017 10:05:52 02/18/2017 12:31:12 Mixed conductive and sensorineural hearing loss of right ear 4114102287 9105 H90.A31 Sensorineu ral hearing loss in left ear 0719271339 9109 H90.A22 Dysfunctio n of eustachian tube 25475511 H69.93 [id number] KSENIA MARQUIS MD SURGERY SCHEDULE [address] [place] [address] 03/08/2017 10:33:55 03/08/2017 10:40:02 [id number] KSENIA MARQUIS MD [facility] [facility] [address] [facility] [place] [address] 03/25/2017 11:15:29 03/25/2017 12:33:47 Dysfunction of eustachian tube 93321118 H69.93 retained tubes Bilateral chronic serous otitis 343510705 H65.23 [id number] RICHMOND WEEMS APRN [place] [facility] [address] [place] [address] 08/12/2017 13:30:41 08/15/2017 11:28:46 Acute otitis media 5279564 H66.002 Infective otitis externa 12380270 H60.392 Retained f oreign body of middle ear 84394056 M79.5 Bilateral T-Tubes Dysfunctio n of eustachian tube 68974497 H69.93 Tobacco user 969492905 Z 72.0 Leukoplaki a of oral mucosa 426310920 K13.21 [id number] KSENIA MARQUIS [facility] [facility] [address] [facility] [place] [address] 03/31/2018 14:11:10 04/05/2018 10:49:49 Dysfunction of eustachian tube 44053442 H69.93 retained bilateral tubes Serous laurence tis media of left ear 7956148251 348017 H65.92 Mixed cond uctive and sensorineural hearing loss, bilateral 781420421 H90.6 Otorrhea 52588958 H92.13 Chronic rhinitis 0187154 6 J31.0 [id number] JIMBO [facility]AVAZOS [facility] [facility] [address] [facility] [place] [address] 03/31/2018 14:29:46 03/31/2018 17:05:24 Mixed conductive and sensorineural hearing loss, bilateral 157665267 H90.6 [id number] KSENIA MARQUIS MD [place] [facility] [address] [place] [address] 05/10/2018 13:10:53 05/10/2018 13:49:35 Dysfunction of eustachian tube 66500311 H69.93 retained bilateral tubes Mixed cond uctive and sensorineural hearing loss, bilateral 031063680 H90.6 Chronic rhinitis 2684971 6 J31.0 Serous laurence tis media of right ear 3463059896 392872 H65.91 removed in office today Otorrhea of right ear 10 93335730 236752 H92.11 [id number] KSENIA MARQUIS [facility] [facility] [address] [facility] [place] [address] 08/01/2018 12:04:32 08/01/2018 13:09:12 Otorrhea 44061164 H92.13 Dysfunctio n of eustachian tube 35693951 H69.93 retained bilateral tubes Perforatio n of tympanic membrane 55360835 H72.91 10% perforatio n in right TM Chronic mu coid otitis media 06442099 H65.33 Chronic pu rulent otitis media 52593137 H66.3X9 [id number] JIMBO CL[place] [facility] [facility] [address] [facility] [place] [address] 08/01/2018 12:11:39 08/01/2018 13:27:28 [id number] KSENIA MARQUIS [facility] [address] [facility] [place] [address] 08/25/2018 12:59:25 08/28/2018 15:05:50 Dysfunction of eustachian tube 44172893 H69.93 retained left t-tube; dry. Perforatio n of tympanic membrane 16738089 H72.91 10% perforatio n in right TM [id number] JIMBO [facility]AVAZOS [facility] [facility] [address] [facility] [place] [address] 08/25/2018 14:01:26 08/25/2018 14:07:16 [id number] KSENIA MARQUIS [facility] [address] [facility] [place] [address] 01/02/2019 11:53:16 01/02/2019 16:04:21 Dysfunction of eustachian tube 62277787 H69.93 retained left t-tube; dry. Perforatio n of tympanic membrane 21007537 H72.91 pin-point perforatio n in right TM; dry Chronic rhinitis 5616062 6 J31.0 [id number] KSENIA MARQUIS MD [place] [facility] [address] [place] [address] 08/16/2023 14:06:11 08/16/2023 15:48:54 Bilateral tinnitus 9431434024 102 H93.13 Sensorineu ral hearing loss of bilateral ears 795487421 H90.3 Dysfunctio n of bilateral eustachian tubes 1884686414 209514 H69.93 [id number] JIMBO LOPEZ [place] [facility] [address] [place] [address] 08/16/2023 14:57:50 08/16/2023 15:26:30 Dysfunction of bilateral eustachian tubes 3636690580 649895 H69.93 Mixed cond uctive and sensorineural hearing loss of right ear 5141653257 9105 H90.A31 Sensorineu ral hearing loss in left ear 4877593909 9109 H90.A22 Health Concerns Section Related Observation LastModified by Organization Detai ls LastModified Time None Recorded Concern Status LastModified by Organization Details LastModified Time None Recorded Advance Directives Directive None Recorded Payers Insurance Date Sequence Insurance Name Policy Number Policy Clark Covered Member ID Clark Member ID Guarantor Name 08/16/2023 2 [place] [id number] Ana Simmons [id number] Ana Simmons 08/17/2023 1 [place] Ana Simmons [id number] Ana Simmons 08/16/2023 2 MEDICAID-[facility] HE[facility] CHOICES - FFS/TRADITIO NAL Ana Simmons [id number] Ana Simmons 08/17/2023 1 [employer] (MEDICARE REPLACEMENT/ ADVANTAGE - PPO) Ana Simmons [id number] Ana Simmons Notes Date Note Type Note Provider Name and Address Organization Details Recorded Time 08/25/2018 text/html Ana comes in today for a follow up on her ears. Ana has been doing much better since the right tube was removed at her last appointment. MD Denys [place], [address], [facility] 08/25/2018 13:42:55 01/02/2019 text/html Ana comes in today for a follow up on her ears. At her last appointment, it was indicated that her left tube was retained and dry. Her right tube had extruded and she had a 10% perforation in her TM. She has been doing well. Ana is using the ciprodex drops on a regular basis. She has not experienced any otorrhea. Ana has noticed an improvement in her balance. She does suffer from allergies and does take it when her allergy symptoms start to bother her. KSENIA MARQUIS MD [facility] [place], [address], [facility] 01/02/2019 12:16:42 08/16/2023 text/html Ana comes in today for evaluation of hearing loss. She did have hearing aids for longstanding hearing loss but ended up losing them. She is currently using ot hearing amplification with minimal improvement in her hearing. She does have a history of a left T-Tube. Her hearing loss does affect her quality of life. MD Denys [place], [address], [facility] 08/16/2023 16:06:07 OBGyn Episode No OBEpisode recorded.
--- OUTSIDE RECORDS SUMMARY | 2025-09-07 11:46 | XMS_ITS | Patient Health Record ---
Author Organization [facility] Address [address] [facility] [address] [place] [address] Care Team Providers Care Geodesy Teacher Name Role Phone Kyler Marie Primary Care Provider [phone] Yahaira Roach Unavailable [phone] Migration, Provider Unavailable Unavailable Vijaya Keene Unavailable [phone] Allergies Allergen (clinical drug ingredient) Drug/Non Drug Allergy documented on EMR Reaction Allergy Type Onset Date Status Information temporarily unavailable Singulair Unknown Drug Allergy Active Information temporarily unavailable Percocet Unknown Drug Allergy Active Information temporarily unavailable Penicillin Unknown Drug Allergy Active Results Component Value Reference Range Notes CT Scan : Chest, Lung Cancer Screening Reviewed date:12/11/2024 09:41:46 AM Interpretation: Performing Lab: Notes/Report: Medications Medication SIG (Take, Route, Frequency, Duration) Notes Start Date End Date Status Vitamin D3 50 MCG 1 CAP(S) ORALLY ONCE A DAY Active Lidocaine 5 % 1 patch remove after 12 hours Externally Once a day; Duration: 10 days 09/07/2025 Active Aspirin 81 MG 1 tab(s) orally once a day Active Mupirocin 2 % 1 application Title Officer ally Twice a day; Duration: 7 days 06/07/2025 Active Memantine HCl 21 MG 1 CAP(S) ORALLY ONCE A DAY; Duration: 90 DAYS 11/14/2024 Active Escitalopram Oxalate 5 MG Take 1 tablet by mouth once daily; Duration: 90 Active amLODIPine Besylate 5 MG Take 1 tablet b y mouth once daily; Duration: 90 Active Donepezil HCl 10 MG TAKE 1 TABLET BY KIM ONCE DAILY AT BEDTIME; Duration: 90 Active Levocetirizine Dihydrochloride 5 MG TAKE 1 TABLET BY MOUTH ONCE DAILY IN THE EVENING; Duration: 90 Active Immunizations Vaccine Route Administration Date Status Comme bill Arexvy Unknown 01/02/2024 Administered Fluzone High Dose IM Intramuscular 07/10/2018 Administered Fluzone High Dose IM Intramuscular 08/12/2020 Administered Fluzone High Dose IM Intramuscular 06/18/2025 Administered Pneumovax 23 IM Intramuscular 08/12/2020 Administered Prevnar PCV-13 (Pneumococcal conjugate 13) IM Intramuscular 07/10/2018 Administered SHINGRIX Unknown 01/02/2024 Administered SHINGRIX IM Intramuscular 06/18/2025 Administered Social History Tobacco Use: Social History Observation Description Date Details (start date - stop date) Current Smoker NA - NA Smoking: Question Answer Notes Are you a: current smoker How often do you smoke cigarettes? every day How many cigarettes a day do you smoke? 31 or mo re How soon after you wake up d o you smoke your first cigarette? within 5 min Are you interested in quitting? Not ready to jose t Additional Findings: Tobacco User Heavy cigarett e smoker (20-39 cigs/day) Problems Problem Type SNOMED Code ICD Code Onset Dates Problem Status W/U Status Risk Notes Problem Information temporarily unavailable Wernicke's encephalopathy (E51.2) Active confirmed Problem Information temporarily unavailable Alzheimer's disease, unspecified (G30.9) Active confirmed Problem Information temporarily unavailable Age-related osteoporosis without current pathological fracture (M81.0) Active confirmed Problem Information temporarily unavailable Encounter for immunization (Z23) Active confirmed Problem Information temporarily unavailable Personal history of nicotine dependence (Z87.891) Active confirmed Problem Information temporarily unavailable Anxiety (F41.9) Active confirmed Problem Information temporarily unavailable Vitamin D deficiency (E55.9) Active confirmed Problem Information temporarily unavailable Essential hypertension (I10) Active confirmed Problem Information temporarily unavailable Seasonal allergies (J30.2) Active confirmed Problem Information temporarily unavailable Other chronic pain (G89.29) Active confirmed Problem Information temporarily unavailable Memory loss (R41.3) Active confirmed Problem Information temporarily unavailable Senile debility (R54) Active confirmed Problem Information temporarily unavailable Frequent falls (R29.6) Active confirmed Problem Information temporarily unavailable Pulmonary emphysema, unspecified emphysema type (J43.9) Active confirmed Problem Information temporarily unavailable Peripheral edema (R60.9) Active confirmed Problem Information temporarily unavailable Ataxia (R27.0) Active confirmed Problem Information temporarily unavailable Cigarette nicotine dependence without complication (F17.210) Active confirmed Problem Information temporarily unavailable 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 (F03.90) Active confirmed Problem Information temporarily unavailable Change in hearing (H91.90) Active confirmed Problem Information temporarily unavailable Tobacco use disorder (F17.200) Active confirmed Problem Information temporarily unavailable Dementia in other diseases classified elsewhere, unspecified severity, without behavioral disturbance, psychotic disturbance, mood disturbance, and anxiety (F02.80) Active confirmed Vital Signs Heart Rate 78 /min 09/07/2025 Temperature 97.9 degrees Fahrenheit 09/07/2025 Blood pressure diastolic 78 mm Hg 09/07/2025 Height 5 ft in 09/07/2025 Blood pressure systolic 126 mm Hg 09/07/2025 Weight 104 lbs 09/07/2025 BMI 20.31 kg/m2 09/07/2025 Encounters Encounter Location Date Provider Diagnosis [facility] [address] [address] 01/12/2025 Provider Migration Essential hypertension I10 ; Seasonal allergies J30.2 ; Vitamin D deficiency E55.9 ; 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 F03.90 and Anxiety F41.9 [facility] [address] [address] 11/14/2024 Yahaira Marley Essential hypertensi on I10 ; Seasonal allergies J30.2 ; Vitamin D deficiency E55.9 ; Age-related osteoporosis without current pathological fracture M81.0 ; 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 F03.90 ; Anxiety F41.9 ; Hard of hearing H91.90 ; Senile debility R54 ; Personal history of tobacco use Z87.891 ; Asymptomatic postmenopausal state Z78.0 and BMI 21.0-21.9, adult Z68.21 [facility] [address] [address] 06/07/2025 Vijaya Keene Insect stings, accidental or unintentional, initial encounter T63.481A and Skin infection L08.9 [facility] [address] [place] [phone] 06/18/2025 Kyler Marie Essential hypertensi on I10 ; 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 F03.90 ; Vitamin D deficiency E55.9 ; Anxiety F41.9 ; Immunization(s) administered Z23 ; Routine medical exam Z00.00 and Encounter for immunization Z23 [facility] [address] [place] [address] 09/07/2025 Kyler Marie Hip pain, left M25.5 52 and Lumbar pain M54.50 [facility] [address] [place] [address] 11/14/2024 Yahaira Roach Asymptomatic postmenopausal state Z78.0 and History of nicotine dependence Z87.891 [facility] [address] [place] [address] 04/18/2025 Kyler Marie Assessments Encounter Date Diagnosis (ICD Code) Assessment Notes Treatment Notes Treatment Clinical Notes Section Notes 11/14/2024 Essential hypertension (ICD-10 - I10) Continue current regimen 11/14/2024 Seasonal allergies (ICD-10 - J30.2) Continue xyzal, well controlled 11/14/2024 Asymptomatic postmenopausal state (ICD-10 - Z78.0) 01/12/2025 Essential hypertension (ICD-10 - I10) 01/12/2025 Seasonal allergies (ICD-10 - J30.2) 06/07/2025 Insect stings, accidental or unintentional, initial encounter (ICD-10 - T63.481A) Dexamethasone IM given for inflammatory soft tissue irritant/allergic reaction (details below). 06/07/2025 Skin infection (ICD-10 - L08.9) Examination today consistent with superficial cellulitis. Topical and oral antibiotics prescribed to treat the infection. Should her symptoms worsen or persist despite treatment after 1 week, I advise she come back to the office or be evaluated in the emergency department to avoid further complication. Patient and her family member voice understanding and are amenable to plan. Will follow-up in 3 months, sooner if needed. 06/18/2025 Essential hypertension (ICD-10 - I10) - chronic, well controlled - continue current regimen 06/18/2025 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 (ICD-10 - F03.90) - notes lives alone, patient with history of dementia likely related to advanced hearing loss and prior AUD history - family primarily assists with appointments and checking on patient, however concerns for recurrent falls and forgetfulness recently, concerns for medication adherance - provided patient and daughter with assisted living facility and [facility] contact information as they would like to pursue this further 09/07/2025 Hip pain, left (ICD-10 - M25.552) [...] will check lumbar x-rays for compression fractures 06/18/2025 Vitamin D deficiency (ICD-10 - E55.9) - chronic, patient with multiple falls, is supposed to be on vitamin D replacement however patient forgetful and often skips this medication - given recurrent falls, history with vitamin D deficiency and age, ordering DEXA for osteoporosis evaluation and if needing additional therapies 01/12/2025 Vitamin D deficiency (ICD-10 - E55.9) 11/14/2024 History of nicotine dependence (ICD-10 - Z87.891) 11/14/2024 Vitamin D deficiency (ICD-10 - E55.9) Continue D3 50 mcg once a day 11/14/2024 Age-related osteoporosis without current pathological fracture (ICD-10 - M81.0) due for repeat imaging 06/18/2025 Anxiety (ICD-10 - F41.9) - chronc, well controlled - continue with current regimen 01/12/2025 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 (ICD-10 - F03.90) 06/18/2025 Immunization(s) administered (ICD-10 - Z23) 11/14/2024 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 (ICD-10 - F03.90) recommend another trial of higher dose as noted 11/14/2024 Anxiety (ICD-10 - F41.9) improved on low dose lexapro 06/18/2025 Routine medical exam (ICD-10 - Z00.00) Patient is unable to fill out HRA form because of communication issues and her dementia. Daughter reports frequent falls noted. No injury. Not a severely depressed. Hearing loss noted. Shots up-to-date. Aged out/not a candidate for cancer screenings. Daughter is healthcare surrogate. 01/12/2025 Anxiety (ICD-10 - F41.9) 06/18/2025 Encounter for immunization (ICD-10 - Z23) flu and 2nd dose shingrix completed today 11/14/2024 Hard of hearing (ICD-10 - H91.90) discussed some additional resources and encouraged continued FU with ENT clnic. 11/14/2024 Senile debility (ICD-10 - R54) 11/14/2024 Personal history of tobacco use (ICD-10 - Z87.891) cessation encouraged 11/14/2024 Asymptomatic postmenopausal state (ICD-10 - Z78.0) 11/14/2024 BMI 21.0-21.9, adult (ICD-10 - Z68.21) normal/stable , better nutrition encouraged as daughter reports poor diet, highly processed with little variety 11/14/2024 Other Plan Of Treatment Pending Test Test Name Order Date CT Scan : Chest, Without Contrast 2017 CT Scan : Chest, Without Contrast 2017 X ray : Spines, Lumbar 09/07/2025 X ray : Hip, Left 09/07/2025 DEXA Hip and Spine - Screening Pulmonary Function Test 07/10/2018 Pulmonary Function Test- Complete 2017 M-Complete Blood Count Auto Diff 021 M-Comprehensive Metabolic Panel 04/22/20 21 M-Comprehensive Metabolic Panel 07/23/20 20 M-Comprehensive Metabolic Panel 02/12/20 23 M-Lipid Panel 04/22/2021 M-Thyroid Stimulating Hormone 04/22/2021 M-Thyroid Stimulating Hormone 02/11/2023 M-Vitamin B12 02/11/2023 M-Vitamin B12 07/23/2020 M-Vitamin B12 06/05/2020 M-Vitamin D 25 Hydroxy 06/05/2020 M-Vitamin D 25 Hydroxy 02/11/2023 M-Vitamin D 25 Hydroxy 04/22/2021 M-Methylmalonic Acid 03/17/2020 Next Appt Details Provider Name:Kyler Sims Cynthia, 09/17/2025 02:00:00 PM, [address], [address], Insurance Providers Payer Name Payer Address Payer Phone Subscriber Number Group Number Insured Name Patient Relationship to Insured Coverage Start Date Coverage End Date [employer] DUAL [address] [address] [place] [address] [phone] [id number] Ana Simmons Self - patient is the insured Medications Administered Medication Instructions Date of Administration Dosage Notes Cyanocobalamin/B-12 Pt's Own Medication 04/02/2020 1 mL Dexamethasone 4mg Injection 06/07/2025 4 mg Medical (General) History Medical History History ICD Code shingles tobacco use dementia, related to prior alcohol abuse HTN vitamin D deficiency Osteoporosis DDD Hearing loss Surgical History Surgery Date(Month/Year) spleenectomy
== END 2025-09-07 23:59 | disposition home or self-care (01) ==
LOC: RAD 11:44
PROVIDERS: PCP Nurse Practitioner Family; Visit Provider Internal Medicine Adolescent Medicine
DX: M48.56XA Collapsed vertebra, not elsewhere classified, lumbar region, initial encounter for fracture (principal); M47.816 Spondylosis without myelopathy or radiculopathy, lumbar region; M85.88 Other specified disorders of bone density and structure, other site; I70.90 Unspecified atherosclerosis; K80.20 Calculus of gallbladder without cholecystitis without obstruction; M17.12 Unilateral primary osteoarthritis, left knee; M46.1 Sacroiliitis, not elsewhere classified; M19.09 Primary osteoarthritis, other specified site; M85.852 Other specified disorders of bone density and structure, left thigh
CPT/HCPCS: 72100; 73502

== ENCOUNTER 2025-10-07 08:56 | Outpatient (CLI) | payer MEDICARE, SELFPAY ==
--- OUTSIDE RECORDS SUMMARY | 2024-05-01 09:00 | XMS_ITS ---
Author Organization [facility] Address [address] [place] [address] Care Team Providers Care Assessment Consultant Name Role Phone Kyler Marie Primary Care Provider REASON FOR VISIT MED CK Encounters Encounter Location Date Provider Diagnosis [address] [address] 05/01/2024 Kyler Marie Plan Of Treatment No Information Progress Notes * Tc BULLOB: [birth year] (75 yo F)Acc No.[id number]:05/01/2024 Progress Notes Patient: Ana Barraza Provider: Nicky Marie MD :1950 A ge:74 Y S ex:Female Date:05/01/2024 Address:[address] [id number] Subjective: * Chief Complaints: * M ED CK Billing Information: * Procedure Codes: * Electronic signature of Spike Marie MD FAAP on 10/07/2025 at 09:05 AM EST Sign off status: Pending * Provider: Nicky Marie MD Date: 05/01/2024 Generated for Jerseyi ng/Fakristeng/eTransmitting on: 1 09:05 AM EST
--- OUTSIDE RECORDS SUMMARY | 2025-01-12 16:30 | XMS_ITS ---
Author Organization [facility] Address [address] [place] [address] Care Team Providers Care Glass Cylinder Flanger Name Role Phone Kyler Marie Primary Care Provider [phone] Migration, Provider Unavailable Unavailable Allergies Allergen (clinical drug ingredient) Drug/Non Drug Allergy documented on EMR Reaction Allergy Type Onset Date Status montelukast Singulair Unknown Drug Allergy Activ e acetaminophen / oxycodone Percocet Unknown Drug Allergy Active Penicillin Unknown Drug Allergy Active REASON FOR VISIT [facility] Encounter Medications Medication SIG (Take, Route, Frequency, Duration) Notes Start Date End Date Status amLODIPine Besylate 5 MG Tablet 1 tab(s) orally once a day; Duration: 90 days Active Levocetirizine Dihydrochloride 5 MG Tablet 1 tab(s) orally once a day (in the evening); Duration: 90 days 01/02/2024 Active Vitamin D3 50 MCG CAPSULE 1 CAP(S) ORALLY ONCE A DAY *Please review and pick correct strength-formulati [facility] from [facility]. If intended option is not shown, discontinue and re-order from Quick Search* Active Aspirin 81 MG Tablet Delayed Release 1 tab(s) orally once a day Active Donepezil HCl 10 MG Tablet 1 tab(s) orally once a day (at bedtime); Duration: 90 days 11/14/2024 Active Lexapro 5 MG Tablet 1 tab(s) orally once a day; Duration: 90 days Active Memantine HCl 21 MG CAPSULE, EXTENDED RELEASE 1 CAP(S) ORALLY ONCE A DAY; Duration: 90 DAYS *Please review and pick correct strength-formulati on from CareLinxan options. If intended option is not shown, discontinue and re-order from Quick Search* 11/14/2024 Active Encounters Encounter Location Date Provider Diagnosis [facility] [address] [place] [address] 01/12/2025 Provider Migration Essential hypertension I10 ; [...] Stop Date Notes amLODIPine Besylate 5 MG Tablet 1 tab(s) orally once a day; Duration: 90 days Levocetirizine Dihydrochloride 5 MG Tablet 1 tab(s) orally once a day (in the evening); Duration: 90 days 01/02/2024 Vitamin D3 50 MCG CAPSULE 1 CAP(S) ORALL Y ONCE A DAY *Please review and pick correct strength-formulation from OneBuild options. If intended option is not shown, discontinue and re-order from Quick Search* Aspirin 81 MG Tablet Delayed Release 1 tab(s) orally once a day Donepezil HCl 10 MG Tablet 1 tab(s) oral ly once a day (at bedtime); Duration: 90 days 11/14/2024 Lexapro 5 MG Tablet 1 tab(s) orally once a day; Duration: 90 days Memantine HCl 21 MG CAPSULE, EXTENDED RELEASE 1 CAP(S) ORALLY ONCE A DAY; Duration: 90 DAYS 11/14/2024 *Please review and pick correct strength-formulation from [employer]Linxan options. If intended option is not shown, discontinue and re-order from Quick Search* Progress Notes * Tc SIMMONSOB: [birth year] (75 yo F)Acc No.[id number]:01/12/2025 Patient: Ana Barraza Provider: Robert bray Migration :1950 A ge:74 Y S ex:Female Date:01/12/2025 Address:[address] [place] [address] [id number] Pcp:Kyler Marie Subjective: * Chief Complaints: * [facility] * Allergies: P enicillinSingulairPercocet Assessment: * Assessment: 1. E ssential hypertension [...] a day, 90 days, 90, Refills 2. Billing Information: * Procedure Codes: * Electronic signature of Prov ider Migration on 10/07/2025 at 09:05 AM EST Sign off status: Pending * Provider: Robert Basilio Date: 0 01/12/2025 Generated for Rose ochoa/Marlyn/Maday on: 1 09:05 AM EST
--- OUTSIDE RECORDS SUMMARY | 2025-09-07 06:00 | XMS_ITS ---
Author Organization [facility] Address [address] [place] [address] Care Team Providers Care Revenue Accountant Name Role Phone Kyler Marie Primary Care Provider Allergies Allergen (clinical drug ingredient) Drug/Non Drug Allergy documented on EMR Reaction Allergy Type Onset Date Status montelukast Singulair Unknown Drug Allergy Activ e acetaminophen / oxycodone Percocet Unknown Drug Allergy Active Penicillin Unknown Drug Allergy Active Results Component Value Reference Range Notes X ray : Spines, Lumbar Reviewed date:09/10/2025 03:59:07 PM Interpretation: Performing Lab: Notes/Report: X ray : Hip, Left Reviewed date:09/09/2025 03:41:29 PM Interpretation: Performing Lab: Notes/Report: REASON FOR VISIT back pain lt side , trouble walking Medications Medication SIG (Take, Route, Frequency, Duration) Notes Start Date End Date Status Lidocaine 5 % Patch 1 patch remove after 12 hours Externally Once a day; Duration: 10 days 09/07/2025 Active Escitalopram Oxalate 5 MG Tablet Take 1 tablet by mouth once daily; Duration: 90 Active amLODIPine Besylate 5 MG Tablet Take 1 tablet by mouth once daily; Duration: 90 Active Donepezil HCl 10 MG Tablet TAKE 1 TABLET BY MOUTH ONCE DAILY AT BEDTIME; Duration: 90 Active Levocetirizine Dihydrochloride 5 MG Tablet TAKE 1 TABLET BY MOUTH ONCE DAILY IN THE EVENING; Duration: 90 Active Vitamin D3 50 MCG CAPSULE 1 CAP(S) ORALL Y ONCE A DAY Active Aspirin 81 MG Tablet Delayed Release 1 tab(s) orally once a day Active Mupirocin 2 % Ointment 1 application Ext ernally Twice a day; Duration: 7 days 06/07/2025 Active Memantine HCl 21 MG CAPSULE, EXTENDED [...] 09/07/2025 Encounters Encounter Location Date Provider Diagnosis [facility] [address] [place] [address] 09/07/2025 Kyler Marie Hip pain, left M25.552 [...] Date Stop Date Notes Lidocaine 5 % Patch 1 patch remove after 12 hours Externally [...] will check lumbar x-rays for compression fractures Next Appt Details Follow Up: prn, Reason: History and Physical Notes * HPI (History of Present Illness) Category Sub-Category Detail Notes Category Not es gen Woke up this morning with pain in her left hip, may be radiates into the left leg. Walks well with very minimal assistance. Took a Tylenol and ibuprofen this morning and feels better according to her engine watchman. Denies falls. Does think she banged her [...] soft and nontender, vital signs look good Progress Notes * SIMMONSTc SaundersOB: [birth year] (75 yo F)Acc No.[id number]:09/07/2025 Progress Notes Patient: Tessie KULKARNI Ana Provider: Nicky Marie MD :1950 A ge:75 Y S ex:Female Date:09/07/2025 Address:[address] [place] [address], [id number] Subjective: * Chief Complaints: * 1 . Back pain lt side , trouble walking. * HPI: valeria en: Woke up this morning with pain in her left hip, may be radiates into the left leg. Walks well with very minimal assistance. Took a Tylenol and ibuprofen this morning and feels better according to her engine watchman. Denies falls. Does think she banged her hip up against a piece of furniture yesterday doing some moving. * Medical History: * Medications: T aking Vitamin D3 50 [...] P enicillin, Singulair, Percocet. Objective: * Vitals: Nancy ramirez: dw, Pain: 9, Temp: 97.9, RR: 20, [...] umbar pain - M54.50 Plan: * Treatment: * ?Imaging: X ray : Hip, Left* This DI was reviewed by Spike Marie on 09/09/2025 at 15:41 PM EST * Notes: Exam notable for minimal pain with [...] 10, Refills 3.?Imaging: X ray : Spines, Lumbar* Lazara Brown 09/10/20 25 03:35:00 PM EST > Spoke with the pts daughter. She wanted to call the [facility] office to ask if she can take ibuprofen as well. Just wanted to let you know!This DI was reviewed by Zulma Toledo on 09/10/2025 at 15:59 PM EST * ?Imaging: X ray : Hip, Left* This DI was reviewed by Spike Marie on 09/09/2025 at 15:41 PM EST * Notes: No falls, given risk factors will check lumbar x-rays for compression fractures?? * Procedure Codes: G 2211 Complex e/m visit add on * Follow Up: p rn * * Sign off status: Completed true * Provider: Nicky Marie MD Date: 11/07/2024 Generated for Rose ochoa/Marlyn/Maday on: 09:05 AM EST
--- OUTSIDE RECORDS SUMMARY | 2025-09-17 09:00 | XMS_ITS ---
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 Name Role Phone Kyler Marie Primary Care Provider Allergies Allergen (clinical drug ingredient) Drug/Non Drug Allergy documented on EMR Reaction Allergy Type Onset Date Status montelukast Singulair Unknown Drug Allergy Activ e acetaminophen / oxycodone Percocet Unknown Drug Allergy Active Penicillin Unknown Drug Allergy Active Results Component Value Reference Range Flag Notes THYROID PANEL WITH TSH (7444 ) Reviewed date:09/20/2025 11:36:10 AM Interpretation: Performing Lab:[facility] Soot[address] Positionlytel KeclonCuyuna Regional Medical CenterJkdeVT[address] Hola Barahona Notes/Report: R609 PER [place] T3 UPTAKE 28 22-35 % N T4 (THYROXINE), TOTAL 7.1 5.1-11.9 mcg/dL N FREE T4 INDEX (T7) 2.0 1.4-3.8 N TSH 2.21 0.40-4.50 mIU/L N COMPREHENSIVE METABOLIC PANE L (16855) Reviewed date:09/20/2025 11:36:11 AM Interpretation: Performing Lab:TUNDE [employer] Positionlytel [place], [facility] HospitalUrlrFM[address] Hola Barahona Notes/Report: R609 PER [place] GLUCOSE 90 65-99 mg/dL N Fasting reference interval UREA NITROGEN (BUN) 11 7-25 mg/dL N CREATININE 0.77 0.60-1.00 mg/dL N EGFR 79 > OR = 60 mL/min/1.73m2 N BUN/CREATININE RATIO SEE NOTE: 6-22 (calc) Not Reported: BUN and Creatinine are within reference range. SODIUM 144 135-146 mmol/L N POTASSIUM 4.4 3.5-5.3 mmol/L N CHLORIDE 105 98-110 mmol/L N CARBON DIOXIDE 31 20-32 mmol/L N CALCIUM 9.5 8.6-10.4 mg/dL N PROTEIN, TOTAL 6.5 6.1-8.1 g/dL N ALBUMIN 4.0 3.6-5.1 g/dL N GLOBULIN 2.5 1.9-3.7 g/dL (calc) N ALBUMIN/GLOBULIN RATIO 1.6 1.0-2.5 (calc) N BILIRUBIN, TOTAL 0.2 0.2-1.2 mg/dL N ALKALINE PHOSPHATASE 100 37-153 U/L N AST 10 10-35 U/L N ALT 7 6-29 U/L N CBC (INCLUDES DIFF/PLT) (529 9) Reviewed date:09/20/2025 11:36:11 AM Interpretation: Performing Lab:CB, [facility] Ihhf5319 [facility]te[facility], [facility] Gran[facility] ManorSeylEB[address] Hola Barahona Notes/Report: R609 PER [place] WHITE BLOOD CELL COUNT 8.1 3.8-10.8 Thousand/uL N RED BLOOD CELL COUNT 4.38 3.80-5.10 Million/uL N HEMOGLOBIN 13.1 11.7-15.5 g/dL N HEMATOCRIT 39.6 35.9-46.0 % N MCV 90.4 81.4-101.7 fL N MCH 29.9 27.0-33.0 pg N MCHC 33.1 31.6-35.4 g/dL N RDW 15.3 11.0-15.0 % H PLATELET COUNT 435 140-400 Thousand/uL H MPV 9.7 7.5-12.5 fL N ABSOLUTE NEUTROPHILS 4658 2500-0032 cells/uL N ABSOLUTE LYMPHOCYTES 2697 850-3900 cells/uL N ABSOLUTE MONOCYTES 591 200-950 cells/uL N ABSOLUTE EOSINOPHILS 97 15-500 cells/uL N ABSOLUTE BASOPHILS 57 0-200 cells/uL N NEUTROPHILS 57.5 N LYMPHOCYTES 33.3 N MONOCYTES 7.3 N EOSINOPHILS 1.2 N BASOPHILS 0.7 N VITAMIN D,25-OH,TOTAL,IA (17 306) Reviewed date:09/20/2025 11:36:11 AM Interpretation: Performing Lab:TUNDE, [employer] [place] [facility], Arnold McelroyUnfxEI[address] Hola Marcell Barahona Notes/Report: R609 [facility] [place] VITAMIN D,25-OH,TOTAL,IA 29 30-100 ng/mL L Vitamin D Status 25-OH Vitamin D: Deficiency: <20 ng/mL Insufficiency: 20 - 29 ng/mL Optimal: > or = 30 ng/mL For 25-OH Vitamin D testing on patients on D2-supplementation and patients for whom quantitation of D2 and D3 fractions is required, the QuestAssureD(TM) 25-OH VIT D, (D2,D3), LC/MS/MS is recommended: order code 26665 (patients >2yrs). See Note 1 Note 1 For additional information, please refer to http://education.Scop[employer] Platform/faq/FA Q199 (This link is being provided for informational/ educational purposes only.) Reason For Referral Reason Dexa scan please Diagnosis 1 Age-related osteopor osis without current pathological fracture (M81.0) Referral Organization [facility] Referring Provider First Name Kyler Referring Provider Last Name Cynthia Referring Provider Speciality Internal M edicine Referred Organization [facility] Referred Address [address] [place] [id number], Referred Provider Specialty Diagnostic R adiology Referral Priority Routine REASON FOR VISIT med ck Medications Medication SIG (Take, Route, Frequency, Duration) Notes Start Date End Date Status Levocetirizine Dihydrochloride 5 MG Tablet TAKE 1 TABLET BY MOUTH ONCE DAILY IN THE EVENING; Duration: 90 Active Donepezil HCl 10 MG Tablet TAKE 1 TABLET BY MOUTH ONCE DAILY AT BEDTIME; Duration: 90 Active amLODIPine Besylate 5 MG Tablet Take 1 tablet by mouth once daily; Duration: 90 Active Escitalopram Oxalate 5 MG Tablet Take 1 tablet by mouth once daily; Duration: 90 Active Lidocaine 5 % Patch 1 patch remove after 12 hours Externally Once a day; Duration: 10 days 09/07/2025 Active Vitamin D3 50 MCG CAPSULE 1 CAP(S) ORALL Y ONCE A DAY Active Aspirin 81 MG Tablet Delayed Release 1 tab(s) orally once a day Active Memantine HCl 21 MG CAPSULE, EXTENDED RELEASE 1 CAP(S) ORALLY ONCE A DAY; Duration: 90 DAYS 11/14/2024 Active Mupirocin 2 % Ointment 1 application Ext ernally Twice a day; Duration: 7 days 06/07/2025 Active Immunizations Vaccine Route Administration Date Status Comme nts PCV-21 (pneumococcal 21-valent conjugate vaccine) IM Intramuscular 09/17/2025 Administered Social History Tobacco Use: Social History Observation Description Date Details (start date - stop date) Current Smoker NA - NA Social History Social History Social Info Question Answer Notes Smoking: Are you a: current smoker How often do you smoke cigarettes? every day How many cigarettes a day do you smoke? 31 or more How soon after you wake up do you smoke your first cigarette? within 5 min Are you interested in quitting? Not ready to quit Additional Findings: Tobacco User Heavy cigarett e smoker (20-39 cigs/day) Additional Details Category Social Info Options Details Social History Occupation: Retired Travel outside [place]: no Alcohol: no Type: , Frequenc y: ,Years: , Determination: Exercise: yes Caffeine: no frequency: Living Will Yes Vital Signs Temperature 98 degrees Fahrenheit 09/17/2025 Blood pressure systolic 122 mm Hg 09/17/20 25 Blood pressure diastolic 78 mm Hg 025 Heart Rate 82 /min 09/17/2025 Height 5 ft in 09/17/2025 Weight 106 lbs 09/17/2025 BMI 20.7 kg/m2 09/17/2025 Encounters Encounter Location Date Provider Diagnosis [address] [address] 09/17/2025 Kyler Marie Essential hypertensi on I10 ; Pulmonary emphysema, unspecified emphysema type J43.9 ; Vitamin D deficiency E55.9 ; Age-related osteoporosis without current pathological fracture M81.0 ; Alzheimer's disease, unspecified G30.9 and Encounter for immunization Z23 Assessments Encounter Date Diagnosis (ICD Code) Assessment Notes Treatment Notes Treatment Clinical Notes Section Notes 09/17/2025 Essential hypertension (ICD-10 - I10) BP is well controlled. 122/78 in office today. Continue current regimen. 09/17/2025 Pulmonary emphysema, unspecified emphysema type (ICD-10 - J43.9) Emphysema is chronic and controlled. Still smoking. Continue current regimen. 09/17/2025 Vitamin D deficiency (ICD-10 - E55.9) Patient will obtain new labs today, order DEXA scan. 09/17/2025 Age-related osteoporosis without current pathological fracture (ICD-10 - M81.0) Will order DEXA scan today and get baseline. 09/17/2025 Alzheimer's disease, unspecified (ICD-10 - G30.9) Patient is overall controlled and doing well on memantine. Will continue current regimen. 09/17/2025 Encounter for immunization (ICD-10 - Z23) Plan Of Treatment Treatment Notes Assessment Notes Essential hypertension BP is well contro lled. 122/78 in office today. Continue current regimen. Pulmonary emphysema, unspeci fied emphysema type Emphysema is chronic and controlled. Still smoking. Continue current regimen. Vitamin D deficiency Patient will obtain new labs today, order DEXA scan. Age-related osteoporosis wit hout current pathological fracture Will order DEXA scan today and get baseline. Alzheimer's disease, unspecified Patient is overall controlled and doing well on memantine. Will continue current regimen. Referrals Referral Date Details 09/17/2025 09/17/2025, Dexa sca n please, [address] [facility], [place], [address], Next Appt Details Follow Up: prn, Reason: History and Physical Notes * HPI (History of Present Illness) Category Sub-Category Detail Notes Category Not es gen 75 yo female presents to clinic for medication check. She is overall doing well and her back pain is subsiding. She is using her cane and pain is controlled with Tylenol. Notes having a little difficulty with stairs outside her home. BP is well controlled. BP is 122/78 in office. DEXA scan was not completed, unaware that this was ordered in 11/2024. Anxiety is also under control and not having issues with medication. Examination Category Sub-Category Detail Notes Category Not es General Examination Heart: Regular Rate and Rhythm, no murmur, rubs or gallops Lungs: LCTAB, No wheezes, c rackles or rhonchi, Good air movement, General Pleasant and Coopera tive, NAD on RA, hearing loss Consultation Request Notes Referral Date Referring Provider Referred Provider Not es 09/17/2025 Kyler Marie , Dexa scan pl ease Progress Notes * Tc SIMMONSOB: [birth year] (75 yo F)Acc No.[id number]:09/17/2025 Progress Notes Patient: Ana ROJO Provider: Nicky Marie MD :1950 A ge:75 Y S ex:Female Date:09/17/2025 Address:[address] [place] [address], [place], [id number] Subjective: * Chief Complaints: * 1 . Med ck. * HPI: g en: 75 yo female presents to clinic for medication check. She is overall doing well and her back pain is subsiding. She is using her cane and pain is controlled with Tylenol. Notes having a little difficulty with stairs outside her home. BP is well controlled. BP is 122/78 in office. DEXA scan was not completed, unaware that this was ordered in 11/2024. Anxiety is also under control and not having issues with medication. * Medical History: * Surgical History: * Hospitalization/Major Diagno stic Procedure: * Family History: F ather: . M other: . P aternal Grand Father: . P aternal Grand Mother: . M aternal Grand Father: . M aternal Grand Mother: . Paternal aunt: alive. M aternal uncle: . M aternal aunt: . S iblings: alive. C hildren: alive. 5 sister(s) . 1 son(s) , 1 daughter(s) - healthy. . * Social History: S moking A re you a: c urrent smoker, H ow often do you smoke cigarettes? e very day, H ow many cigarettes a day do you smoke? 3 1 or more, H ow soon after you wake up do you smoke your first cigarette? w ithin 5 min, A re you interested in quitting? N ot ready to quit, A dditional Findings: Tobacco User H eavy cigarette smoker (20-39 cigs/day). E xercise: yes. Caffeine: no, frequency:. Living Will: Yes. Alcohol: no, Type: , Frequency: ,Years: , Determination:. Travel outside US: no. Occupation: Retired. * Medications: T aking Vitamin D3 50 [...] tablet by mouth once daily , Taking Lidocaine 5 % Patch 1 patch remove after 12 hours Externally Once a day , Medication List reviewed and reconciled with the patient * Allergies: P enicillin, Singulair, Percocet. Objective: * Vitals: N urse: dw, Pain: 7, Temp: 98, RR: 20, HR: 82, BP: 122/78, Ht: 5 ft, Wt: 106, BMI:20.7. * Examination: G eneral Examination: General P leasant and Cooperative, NAD on RA, hearing loss.? Heart: R egular Rate and Rhythm, no murmur, rubs or gallops. Lungs: L CTAB, No wheezes, crackles or rhonchi, Good air movement,. Assessment: * Assessment: 1. E ssential hypertension - I10 (Primary) 2 . P ulmonary emphysema, unspecified emphysema type - J43.9 3 . V itamin D deficiency - E55.9 4 . A ge-related osteoporosis without current pathological fracture - M81.0 5 . Alzheimer's disease, unspecified - G30.9 6 . E ncounter for immunization - Z23 Plan: * Treatment: 2. P ulmonary emphysema, unspecified emphysema type L AB: THYROID PANEL WITH TSH (7444) Value Reference Range T 3 UPTAKE 28 22-35 - % * T 4 (THYROXINE), TOTAL 7.1 5.1-11.9 - mcg/dL * F REE T4 INDEX (T7) 2.0 1.4-3.8 - * T SH 2.21 0.40-4.50 - mIU/L * White, Holly R 09/19/2025 0 9:08:06 AM EST > lvdenita Leach [facility] 09/20/2025 11:36:04 AM EST > Dianne Christian lab was reviewed by Holly Leach on 09/20/2025 at 11:36 AM EST ?LAB: COMPREHENSIVE METABOLIC PANEL (61871)* Value Reference Range G LUCOSE 90 65-99 - mg/dL * U JACQUELINE NITROGEN (BUN) 11 7-25 - mg/dL * C REATININE 0.77 0.60-1.00 - mg/dL * B UN/CREATININE RATIO SEE NOTE: 6-22 - (calc) * S ODIUM 144 135-146 - mmol/L * P OTASSIUM 4.4 3.5-5.3 - mmol/L * C HLORIDE 105 98-110 - mmol/L * C ARBON DIOXIDE 31 20-32 - mmol/L * C ALCIUM 9.5 8.6-10.4 - mg/dL * P ROTEIN, TOTAL 6.5 6.1-8.1 - g/dL * A LBUMIN 4.0 3.6-5.1 - g/dL * G LOBULIN 2.5 1.9-3.7 - g/dL (calc ) * A LBUMIN/GLOBULIN RATIO 1.6 1.0-2.5 - (calc) * B ILIRUBIN, TOTAL 0.2 0.2-1.2 - mg/dL * A LKALINE PHOSPHATASE 100 37-153 - U/L * A ST 10 10-35 - U/L * A LT 7 6-29 - U/L * E GFR 79 > OR = 60 - mL/min/1 .73m2 * Haylee Holly 09/19/2025 0 9:08:06 AM EST > lvm Haylee [facility] 09/20/2025 11:36:04 AM EST > Dianne Christian lab was reviewed by Holly Leach on 09/20/2025 at 11:36 AM EST ?LAB: CBC (INCLUDES DIFF/PLT) (8584)* Value Reference Range W DOMINIK BLOOD CELL COUNT 8.1 3.8-10.8 - Thousan d/uL * R ED BLOOD CELL COUNT 4.38 3.80-5.10 - Million/ uL * H EMOGLOBIN 13.1 11.7-15.5 - g/dL * H EMATOCRIT 39.6 35.9-46.0 - % * M CV 90.4 81.4-101.7 - fL * M CH 29.9 27.0-33.0 - pg * M CHC 33.1 31.6-35.4 - g/dL * R DW 15.3 H 11.0-15.0 - % * P LATELET COUNT 435 H 140-400 - Thousand/u L * N EUTROPHILS 57.5 - % * A BSOLUTE NEUTROPHILS 4658 3714-8268 - cells/uL * L YMPHOCYTES 33.3 - % * A BSOLUTE LYMPHOCYTES 2697 850-3900 - cells/uL * M ONOCYTES 7.3 - % * A BSOLUTE MONOCYTES 591 200-950 - cells/uL * E OSINOPHILS 1.2 - % * A BSOLUTE EOSINOPHILS 97 15-500 - cells/uL * B ASOPHILS 0.7 - % * A BSOLUTE BASOPHILS 57 0-200 - cells/uL * M PV 9.7 7.5-12.5 - fL * [facility] 0 9:08:06 AM EST > [facility] 11:36:04 AM EST > Dianne Christian lab was reviewed by Holly Leach on 09/20/2025 at 11:36 AM EST ?LAB: VITAMIN D,25-OH,TOTAL,IA (67086)* Value Reference Range V ITAMIN D,25-OH,TOTAL,IA 29 L 30-100 - ng/mL * Haylee [facility] 09/19/2025 0 9:08:06 AM EST > lvm Kneeland [facility] 09/20/2025 11:36:04 AM EST > Diannerita Christian lab was reviewed by Holly Leach on 09/20/2025 at 11:36 AM EST Notes: Emphysema is chronic and controlled. Still smoking. Continue current regimen. ??3.?Vitamin D deficiency?LAB: THYROID PANEL WITH TSH (9044)* Value Reference Range T 3 UPTAKE 28 22-35 - % * T 4 (THYROXINE), TOTAL 7.1 5.1-11.9 - mcg/dL * F REE T4 INDEX (T7) 2.0 1.4-3.8 - * T SH 2.21 0.40-4.50 - mIU/L * Holly Leach R 09/19/2025 0 9:08:06 AM EST > lvm Haylee Holly R 09/20/2025 11:36:04 AM EST > Dianne Christian lab was reviewed by Holly Leach on 09/20/2025 at 11:36 AM EST ?LAB: COMPREHENSIVE METABOLIC PANEL (57695)* Value Reference Range G LUCOSE 90 65-99 - mg/dL * U JACQUELINE NITROGEN (BUN) 11 7-25 - mg/dL * C REATININE 0.77 0.60-1.00 - mg/dL * B UN/CREATININE RATIO SEE NOTE: 622 - (calc) * S ODIUM 144 135-146 - mmol/L * P OTASSIUM 4.4 3.5-5.3 - mmol/L * C HLORIDE 105 98-110 - mmol/L * C ARBON DIOXIDE 31 20-32 - mmol/L * C ALCIUM 9.5 8.6-10.4 - mg/dL * P ROTEIN, TOTAL 6.5 6.1-8.1 - g/dL * A LBUMIN 4.0 3.6-5.1 - g/dL * G LOBULIN 2.5 1.9-3.7 - g/dL (calc ) * A LBUMIN/GLOBULIN RATIO 1.6 1.0-2.5 - (calc) * B ILIRUBIN, TOTAL 0.2 0.2-1.2 - mg/dL * A LKALINE PHOSPHATASE 100 37-153 - U/L * A ST 10 10-35 - U/L * A LT 7 6-29 - U/L * E GFR 79 > OR = 60 - mL/min/1 .73m2 * Holly Leach R 09/19/2025 0 9:08:06 AM EST > lvm Haylee Holly R 09/20/2025 11:36:04 AM EST > Dianne Christian lab was reviewed by Holly Leach on 09/20/2025 at 11:36 AM EST ?LAB: CBC (INCLUDES DIFF/PLT) (7715)* Value Reference Range W DOMINIK BLOOD CELL COUNT 8.1 3.8-10.8 - Thousan d/uL * R ED BLOOD CELL COUNT 4.38 3.80-5.10 - Million/ uL * H EMOGLOBIN 13.1 11.7-15.5 - g/dL * H EMATOCRIT 39.6 35.9-46.0 - % * M CV 90.4 81.4-101.7 - fL * M CH 29.9 27.0-33.0 - pg * M CHC 33.1 31.6-35.4 - g/dL * R DW 15.3 H 11.0-15.0 - % * P LATELET COUNT 435 H 140-400 - Thousand/u L * N EUTROPHILS 57.5 - % * A BSOLUTE NEUTROPHILS 4658 0378-4356 - cells/uL * L YMPHOCYTES 33.3 - % * A BSOLUTE LYMPHOCYTES 2697 850-3900 - cells/uL * M ONOCYTES 7.3 - % * A BSOLUTE MONOCYTES 591 200-950 - cells/uL * E OSINOPHILS 1.2 - % * A BSOLUTE EOSINOPHILS 97 15-500 - cells/uL * B ASOPHILS 0.7 - % * A BSOLUTE BASOPHILS 57 0-200 - cells/uL * M PV 9.7 7.5-12.5 - fL * Haylee [facility] 09/19/2025 0 9:08:06 AM EST > lvm Haylee [facility] 09/20/2025 11:36:04 AM EST > Diannerita Christian lab was reviewed by Holly Leach on 09/20/2025 at 11:36 AM EST ?LAB: VITAMIN D,25-OH,TOTAL,IA (63869)* Value Reference Range V ITAMIN D,25-OH,TOTAL,IA 29 L 30-100 - ng/mL * Haylee [facility] 09/19/2025 0 9:08:06 AM EST > lvm Haylee [facility] 09/20/2025 11:36:04 AM EST > Dianne Ramys lab was reviewed by Holly Leach on 09/20/2025 at 11:36 AM EST Notes: Patient will obtain new labs today, order DEXA scan. ??4.?Age-related osteoporosis without current pathological fracture?LAB: THYROID PANEL WITH TSH (7444)* Value Reference Range T 3 UPTAKE 28 22-35 - % * T 4 (THYROXINE), TOTAL 7.1 5.1-11.9 - mcg/dL * F REE T4 INDEX (T7) 2.0 1.4-3.8 - * T SH 2.21 0.40-4.50 - mIU/L * Holly Leach 09/19/2025 0 9:08:06 AM EST > lvm Holly Leach 09/20/2025 11:36:04 AM EST > Dianne rebekahaddisMassiel lab was reviewed by Holly Leach on 09/20/2025 at 11:36 AM EST ?LAB: COMPREHENSIVE METABOLIC PANEL (19677)* Value Reference Range G LUCOSE 90 65-99 - mg/dL * U JACQUELINE NITROGEN (BUN) 11 7-25 - mg/dL * C REATININE 0.77 0.60-1.00 - mg/dL * B UN/CREATININE RATIO SEE NOTE: 6-22 - (calc) * S ODIUM 144 135-146 - mmol/L * P OTASSIUM 4.4 3.5-5.3 - mmol/L * C HLORIDE 105 98-110 - mmol/L * C ARBON DIOXIDE 31 20-32 - mmol/L * C ALCIUM 9.5 8.6-10.4 - mg/dL * P ROTEIN, TOTAL 6.5 6.1-8.1 - g/dL * A LBUMIN 4.0 3.6-5.1 - g/dL * G LOBULIN 2.5 1.9-3.7 - g/dL (calc ) * A LBUMIN/GLOBULIN RATIO 1.6 1.0-2.5 - (calc) * B ILIRUBIN, TOTAL 0.2 0.2-1.2 - mg/dL * A LKALINE PHOSPHATASE 100 37-153 - U/L * A ST 10 10-35 - U/L * A LT 7 6-29 - U/L * E GFR 79 > OR = 60 - mL/min/1 .73m2 * Holly Leach 09/19/2025 0 9:08:06 AM EST > lvm Haylee [facility] 09/20/2025 11:36:04 AM EST > Dianne Christian lab was reviewed by Holly Leach on 09/20/2025 at 11:36 AM EST ?LAB: CBC (INCLUDES DIFF/PLT) (0492)* Value Reference Range W DOMINIK BLOOD CELL COUNT 8.1 3.8-10.8 - Thousan d/uL * R ED BLOOD CELL COUNT 4.38 3.80-5.10 - Million/ uL * H EMOGLOBIN 13.1 11.7-15.5 - g/dL * H EMATOCRIT 39.6 35.9-46.0 - % * M CV 90.4 81.4-101.7 - fL * M CH 29.9 27.0-33.0 - pg * M CHC 33.1 31.6-35.4 - g/dL * R DW 15.3 H 11.0-15.0 - % * P LATELET COUNT 435 H 140-400 - Thousand/u L * N EUTROPHILS 57.5 - % * A BSOLUTE NEUTROPHILS 4658 5561-1206 - cells/uL * L YMPHOCYTES 33.3 - % * A BSOLUTE LYMPHOCYTES 2697 850-3900 - cells/uL * M ONOCYTES 7.3 - % * A BSOLUTE MONOCYTES 591 200-950 - cells/uL * E OSINOPHILS 1.2 - % * A BSOLUTE EOSINOPHILS 97 15-500 - cells/uL * B ASOPHILS 0.7 - % * A BSOLUTE BASOPHILS 57 0-200 - cells/uL * M PV 9.7 7.5-12.5 - fL * Haylee [facility] 09/19/2025 0 9:08:06 AM EST > lvm Haylee [facility] 09/20/2025 11:36:04 AM EST > Dianne Christian lab was reviewed by Holly Leach on 09/20/2025 at 11:36 AM EST ?LAB: VITAMIN D,25-OH,TOTAL,IA (29768)* Value Reference Range V ITAMIN D,25-OH,TOTAL,IA 29 L 30-100 - ng/mL * Holly Leach 09/19/2025 0 9:08:06 AM EST > lvdenita Haylee Holly R 09/20/2025 11:36:04 AM EST > Dianne Anahi lab was reviewed by Holly Leach on 09/20/2025 at 11:36 AM EST Notes: Will order DEXA scan today and get baseline. ? Referral To:Diagnostic Radiology ?Reason:Dexa scan please 5.?Alzheimer's disease, unspecified? Notes: Patient is overall controlled and doing well on memantine. Will continue current regimen. ? * Immunizations: PCV-21 (pneumococcal 21-valent conjugate vaccine) : 0.5 mL (Route: Intramuscular) given by MARCELA Trujillo on Right Deltoid (Encounter for immunization) * Procedure Codes: 9 0684 PCV21 VACCINE IM, 57403 ADMINISTRATION IMMUNIZATION ONE VACCINE, G2211 Complex e/m visit add on * Follow Up: p rn * * Sign off status: Completed true * Provider: Nicky Marie MD Date: 11/18/2024 Generated for Rose ochoa/Marlyn/Luzitting on: 09:05 AM EST
--- OUTSIDE RECORDS SUMMARY | 2025-09-17 10:24 | XMS_ITS ---
Author Organization [facility] Address [address] [place] [address] Care Team Providers Care Detail Technician Name Role Phone Kyler Marie Primary Care Provider REASON FOR VISIT dexa order Encounters Encounter Location Date Provider Diagnosis [facility] [address] [place] [address] 09/17/2025 Kyler Marie Age-related osteoporosis without current pathological fracture M81.0 Assessments Encounter Date Diagnosis (ICD Code) Assessment Notes Treatment Notes Treatment Clinical Notes Section Notes 09/17/2025 Age-related osteoporosis without current pathological fracture (ICD-10 - M81.0) Plan Of Treatment Pending Test Test Name Order Date DEXA Hip and Spine - Screening Progress Notes * Tc BULLOB: [birth year] (75 yo F)Acc No.[id number]:09/17/2025 Patient: Ana ROJO :1950 A ge:75 Y S ex:Female Address:[place] [address] Subjective: * Chief Complaints: * D exa order * Medical History: * Surgical History: * Hospitalization/Major Diagno stic Procedure: * Medications: Objective: * Vitals: * Physical Examination: Assessment: * Assessment: 1. A ge-related osteoporosis without current pathological fracture - M81.0 Plan: * Treatment: * Procedure Codes: * true * Date: Generated for Rose ochoa/Marlyn/Maday on: 09:05 AM EST
--- NOTE | 2025-10-07 09:01 | XR_ITS ---
FINAL REPORT TECHNIQUE: Bone densitometry calculations of the lumbar spine and left hip were obtained. CLINICAL HISTORY: SCREENING COMPARISON: 12/04/2024 FINDINGS: Using L1-4, the bone mineral density of the spine is 0.896 g/cm2, corresponding to T-score of -1.4 and a Z score of 1.2. This is within the range of osteopenia. The bone mineral density change versus baseline is -2.4%. Using the left hip, the bone mineral density of the femoral neck is 0.525 g/cm2, corresponding to a T-score of -2.9 and a Z-score of -0.7. This is within the range of osteoporosis. The bone mineral density change versus baseline is 4.1%. Using the right hip, the bone mineral density of the femoral neck is 0.601 g/cm?, corresponding to a T-score of -2.2 and a Z-score of 0.0. This is within the range of osteopenia. The bone mineral density change versus baseline is 7.2%. NOTE: T-score: Standard deviation compared with peak bone mass of young adult mean. *Following the recommendations of the International Society of Bone densitometry, classification of hip BMD is based on the lower of two T-scores; total hip or femoral neck. IMPRESSION: 1. Bone mineral density of the lumbar spine and right femoral neck within the range of osteopenia. 2. Bone mineral density of the left femoral neck within the range of osteoporosis. Reviewed, Interpreted and Dictated by Cleo Lora MD Transcribed by Meg St Authenticated and . [facility]
--- OUTSIDE RECORDS SUMMARY | 2025-10-07 09:05 | XMS_ITS | Patient Health Record ---
Author Organization [facility] Address [address] [place] [address] Care Team Providers Care Alkylation Operator Name Role Phone Kyler Marie Primary Care Provider [phone] Yahaira Roach Unavailable [phone] Migration, Provider Unavailable Unavailable Vijaya Keene Unavailable [phone] Allergies Allergen (clinical drug ingredient) Drug/Non Drug Allergy documented on EMR Reaction Allergy Type Onset Date Status montelukast Singulair Unknown Drug Allergy Activ e acetaminophen / oxycodone Percocet Unknown Drug Allergy Active Penicillin Unknown Drug Allergy Active Results Component Value Reference Range Flag Notes X ray : Spines, Lumbar Reviewed date:09/10/2025 03:59:07 PM Interpretation: Performing Lab: Notes/Report: X ray : Hip, Left Reviewed date:09/09/2025 03:41:29 PM Interpretation: Performing Lab: Notes/Report: THYROID PANEL WITH TSH (7444 ) Reviewed date:09/20/2025 11:36:10 AM Interpretation: Performing Lab:CB, [facility] [address], [place] NmpkEH[address] Hola Barahona Notes/Report: R609 PER [place]LLY T3 UPTAKE 28 22-35 % N T4 (THYROXINE), TOTAL 7.1 5.1-11.9 mcg/dL N FREE T4 INDEX (T7) 2.0 1.4-3.8 N TSH 2.21 0.40-4.50 mIU/L N COMPREHENSIVE METABOLIC PANE L (45396) Reviewed date:09/20/2025 11:36:11 AM Interpretation: Performing Lab:[facility] [id number], [facility]J[address] Hola Barahona Notes/Report: R609 PER [place] GLUCOSE [...] 7 6-29 U/L N CBC (INCLUDES DIFF/PLT) (639 9) Reviewed date:09/20/2025 11:36:11 AM Interpretation: Performing Lab:[facility] [id number] [employer] [address], [facility] [id number] Hola Barahona Notes/Report: R609 PER [place] WHITE [...] 9.7 7.5-12.5 fL N ABSOLUTE NEUTROPHILS 4658 0276-2645 cells/uL N ABSOLUTE LYMPHOCYTES 2697 850-3900 cells/uL N ABSOLUTE MONOCYTES 591 200-950 cells/uL N ABSOLUTE EOSINOPHILS 97 15-500 cells/uL N ABSOLUTE BASOPHILS 57 0-200 cells/uL N NEUTROPHILS 57.5 N LYMPHOCYTES 33.3 N MONOCYTES 7.3 N EOSINOPHILS 1.2 N BASOPHILS 0.7 N VITAMIN D,25-OH,TOTAL,IA (17 306) Reviewed date:09/20/2025 11:36:11 AM Interpretation: Performing Lab:[facility], [facility] [address], [place]tuz[place]B[address] Hola Barahona Notes/Report: R609 PER [place] VITAMIN D,25-OH,TOTAL,IA 29 30-100 ng/mL L Vitamin D Status 25-OH Vitamin D: Deficiency: <20 ng/mL Insufficiency: 20 - 29 ng/mL Optimal: > or = 30 ng/mL For 25-OH Vitamin D testing on patients on D2-supplementation and patients for whom quantitation of D2 and D3 fractions is required, the QuestAssureD(TM) 25-OH VIT D, (D2,D3), LC/MS/MS is recommended: order code 01572 (patients >2yrs). See Note 1 Note 1 For additional information, please refer to http://education.[employer]/faq/FA Q199 (This link is being provided for informational/ educational purposes only.) CT Scan : Chest, Lung Cancer Screening [...] Vaccine Route Administration Date Status Comme nts SHINGRIX Unknown 01/02/2024 Administered SHINGRIX IM Intramuscular 06/18/2025 Administered Prevnar PCV-13 (Pneumococcal conjugate 13) IM Intramuscular 07/10/2018 Administered Pneumovax 23 IM Intramuscular 08/12/2020 Administered PCV-21 (pneumococcal 21-valent conjugate vaccine) IM Intramuscular 09/17/2025 Administered Fluzone High Dose IM Intramuscular 07/10/2018 Administered Fluzone High Dose IM Intramuscular 08/12/2020 Administered Fluzone High Dose IM Intramuscular 06/18/2025 Administered Arexvy Unknown 01/02/2024 Administered Social History Tobacco Use: Social History [...] yes Caffeine: no frequency: Living Will Yes Problems Problem Type SNOMED Code ICD Code Onset Dates Problem Status W/U Status Risk Notes Problem Wernicke's encephalopathy (27524491) Wernicke's encephalopathy (E51.2) Active confirmed Problem Alzheimer's disease (17829209) Alzheimer's disease, unspecified (G30.9) Active confirmed Problem Age-related osteoporosis (927022847) Age-related osteoporosis without current pathological fracture (M81.0) Active confirmed Problem Vaccination given (812719996) Encounter for immunization (Z23) Active confirmed Problem Nicotine dependence (33409637) Personal history of nicotine dependence (Z87.891) Active confirmed Problem Anxiety (40240838) Anxiety (F41.9) Active confirmed Problem Vitamin D deficiency (93321921) Vitamin D deficiency (E55.9) Active confirmed Problem Essential hypertension (37971377) Essential hypertension (I10) Active confirmed Problem Seasonal allergy (084644736) Seasonal allergies (J30.2) Active confirmed Problem Chronic pain (78283324) Other chronic pain (G89.29) Active confirmed Problem Memory loss (71831370) Memory loss (R41.3) Active confirmed Problem Senile debility (17162187) Senile debility (R54) Active confirmed Problem Recurrent falls (794406302) Frequent falls (R29.6) Active confirmed Problem Pulmonary emphysema (15328703) Pulmonary emphysema, unspecified emphysema type (J43.9) Active confirmed Problem Peripheral edema (97671409) Peripheral edema (R60.9) Active confirmed Problem Ataxia (49682163) Ataxia (R27.0) Active confirm ed Problem Tobacco user (073433865) Cigarette nicotine dependence without complication (F17.210) Active confirmed Problem Dementia (64932159) 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 (F03.90) Active confirmed Problem Hearing loss (68459055) Change in hearing (H91.90) Active confirmed Problem Tobacco use (269187333) Tobacco use disorder (F17.200) Active confirmed Problem Dementia (15959670) Dementia in other diseases classified elsewhere, unspecified severity, without behavioral disturbance, psychotic disturbance, mood disturbance, and anxiety (F02.80) Active confirmed Vital Signs Heart Rate 82 /min 09/17/2025 Temperature 98 degrees Fahrenheit 09/17/2025 Blood pressure diastolic 78 mm Hg 09/17/2025 Height 5 ft in 09/17/2025 Blood pressure systolic 122 mm Hg 09/17/2025 Weight 106 lbs 09/17/2025 BMI 20.7 kg/m2 09/17/2025 Encounters Encounter Location Date Provider Diagnosis [facility] [address] [place] [address] 01/12/2025 Provider Migration Essential hypertension I10 ; Seasonal allergies J30.2 ; Vitamin D deficiency E55.9 ; 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 F03.90 and Anxiety F41.9 [facility] [address] [address] 11/14/2024 Yahaira Roach Essential hypertensi on I10 ; Seasonal allergies J30.2 ; Vitamin D deficiency E55.9 ; Age-related osteoporosis without current pathological fracture M81.0 ; 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 F03.90 ; Anxiety F41.9 ; Hard of hearing H91.90 ; Senile debility R54 ; Personal history of tobacco use Z87.891 ; Asymptomatic postmenopausal state Z78.0 and BMI 21.0-21.9, adult Z68.21 [facility] [address] [facility] [address] [place] [address] 06/07/2025 Vijaya Keene Insect stings, accidental or unintentional, initial encounter T63.481A and Skin infection L08.9 [facility] [place] [address] [address] 06/18/2025 Kyler Besson Essential hypertensi on I10 ; 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 F03.90 ; Vitamin D deficiency E55.9 ; Anxiety F41.9 ; Immunization(s) administered Z23 ; Routine medical exam Z00.00 and Encounter for immunization Z23 [facility] [address] [facility] [address] [place] [address] 09/07/2025 Kyler Besson Hip pain, left M25.5 50 and Lumbar pain M54.50 [facility] [place] [address] [address] 09/17/2025 Kyler Besson Essential hypertensi on I10 ; Pulmonary emphysema, unspecified emphysema type J43.9 ; Vitamin D deficiency E55.9 ; Age-related osteoporosis without current pathological fracture M81.0 ; Alzheimer's disease, unspecified G30.9 and Encounter for immunization Z23 [facility] [address] [facility] [address] [place] [address] 11/14/2024 Yahaira Roach Asymptomatic postmenopausal state Z78.0 and History of nicotine dependence Z87.891 [facility] [address] [facility] [address] [place] [address] 04/18/2025 Kyler Besson [facility] [address] [facility] [address] [place] [address] 09/17/2025 Kyler Marie Age-related osteoporosis without current [...] and daughter with assisted living facility and senior care contact information as they would like to [...] will check lumbar x-rays for compression fractures 09/17/2025 Essential hypertension (ICD-10 - I10) BP is well controlled. 122/78 in office today. Continue current regimen. 09/17/2025 Pulmonary emphysema, unspecified emphysema type (ICD-10 - J43.9) Emphysema is chronic and controlled. Still smoking. Continue current regimen. 09/17/2025 Age-related osteoporosis without current pathological fracture (ICD-10 - M81.0) 09/17/2025 Vitamin D deficiency (ICD-10 - E55.9) Patient will obtain new labs today, order DEXA scan. 06/18/2025 Vitamin D deficiency (ICD-10 - E55.9) - chronic, patient with multiple falls, is supposed to be on vitamin D replacement however patient forgetful and often skips this medication - given recurrent falls, history with vitamin D deficiency and age, ordering DEXA for osteoporosis evaluation and if needing additional therapies 11/14/2024 History of nicotine dependence (ICD-10 - Z87.891) 01/12/2025 Vitamin D deficiency (ICD-10 - E55.9) 11/14/2024 Vitamin D deficiency (ICD-10 - E55.9) Continue D3 50 mcg once a day 11/14/2024 Age-related osteoporosis without current pathological fracture (ICD-10 - M81.0) due for repeat imaging 06/18/2025 Anxiety (ICD-10 - F41.9) - chronc, well controlled - continue with current regimen 09/17/2025 Age-related osteoporosis without current pathological fracture (ICD-10 - M81.0) Will order DEXA scan today and get baseline. 01/12/2025 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 (ICD-10 - F03.90) 06/18/2025 Immunization(s) administered (ICD-10 - Z23) 09/17/2025 Alzheimer's disease, unspecified (ICD-10 - G30.9) Patient is overall controlled and doing well on memantine. Will continue current regimen. 11/14/2024 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 (ICD-10 [...] healthcare surrogate. 01/12/2025 Anxiety (ICD-10 - F41.9) 09/17/2025 Encounter for immunization (ICD-10 - Z23) 06/18/2025 Encounter for immunization (ICD-10 - Z23) [...] poor diet, highly processed with little variety Plan Of Treatment Pending Test Test Name Order Date CT Scan : Chest, Without Contrast 2017 CT Scan : Chest, Without Contrast 2017 DEXA Hip and Spine - Screening 5 DEXA Hip and Spine - Screening 5 Pulmonary Function Test 07/10/2018 Pulmonary Function Test- Complete 2017 M-Complete Blood Count Auto Diff 021 M-Comprehensive Metabolic Panel 07/23/20 20 M-Comprehensive Metabolic Panel 04/22/20 21 M-Comprehensive Metabolic Panel 02/12/20 23 M-Lipid Panel 04/22/2021 M-Thyroid Stimulating Hormone 02/11/2023 M-Thyroid Stimulating Hormone 04/22/2021 M-Vitamin B12 02/11/2023 M-Vitamin B12 07/23/2020 M-Vitamin B12 06/05/2020 M-Vitamin D 25 Hydroxy 06/05/2020 M-Vitamin D 25 Hydroxy 04/22/2021 M-Vitamin D 25 Hydroxy 02/11/2023 M-Methylmalonic Acid 03/17/2020 Insurance Providers Payer Name Payer Address Payer Phone Subscriber Number Group Number Insured Name Patient Relationship to Insured Coverage Start Date Coverage End Date [employer] D[employer] [address] [address] [place] [address] [phone] [id number] Ana Simmons Self - patient is the [...]
--- OUTSIDE RECORDS SUMMARY | 2025-10-07 09:06 | XMS_ITS | Clinical Summary ---
Author Organization Healthcare Address [address] [place] [address] Care Team Providers Care Envelope Machine Adjuster Name Role Phone Chevy Grijalva MD Primary Care Provider [phone] Allergies Active Allergy Reactions Criticality Noted Date [...] Date Smoking Tobacco: Every Day Cigarettes 2 63 Started: 1964 Passive Smoke Exposure: Current Smokeless [...] Screening 1948 [facility]-Medicare Annual Wellness (AWV) 1948 [facility]-/Child/Adol SDOH Screenings 1948 [facility]- SDOH Screenings 1966 [facility]-Adult SDOH Screenings 1966 [facility]-DTaP,Tdap,and Td Vaccines (1 - Tdap) 1967 [facility]-Zoster Vaccines (2 of 2) 02/27/2024 01/02/2024 [id number] Vaccine (2 - 2024- season) 2025 01/15/2021 [facility]-Influenza Vaccine (#1) 06/10/202507/10, 08/22/2014 [facility]-Pneumococcal Vaccine: 50+ Years Completed 08/12/2020, 07/10/2018 [facility]-RSV Vaccine: 60+ Years or Completed 01/02/2024 HPV Vaccines (No Doses Required) Completed [facility]-HIB Vaccines Aged Out No longer e [...] patient's age to complete this topic [place] [address] Care Teams Envelope Machine Adjuster Relationship Specialty Start Date End Date Chevy Grijalva MD [address] [place] [phone] PCP - General 08/31/23
== END 2025-10-07 23:59 ==
LOC: RAD 08:57
PROVIDERS: PCP Internal Medicine Adolescent Medicine; Visit Provider Internal Medicine Adolescent Medicine
DX: M81.0 Age-related osteoporosis without current pathological fracture (principal)
CPT/HCPCS: 77080